=== PATIENT | female | born 1950 | race Caucasian/White ===

== ENCOUNTER → 2020-12-26 10:09 | Outpatient (BNVA) | payer MEDICARE, MEDICAID, SELFPAY | PROVIDERS: PCP Internal Medicine; Visit Provider Nurse Practitioner | DX: R19.5 Other fecal abnormalities (principal) | CPT/HCPCS: 99212 ==

== ENCOUNTER 2021-01-02 13:38 | Outpatient (REF) | payer MEDICARE, MEDICAID, SELFPAY ==
--- NOTE | ~2021-01-02 | MM_ITS ---
EXAMINATION: MM SCREENING DIGITAL MAMMOGRAPHY, BILATERAL CLINICAL INFORMATION: Screening. Asymptomatic. The lifetime risk of breast cancer based on the Tyrer-Cuzick Model is 4%. COMPARISON: Mammography: 03/02/2019 (new baseline) TECHNIQUE: Digital mammography is performed in craniocaudal and mediolateral oblique views along with computer-aided detection (CAD). Additional left MLO view is provided. FINDINGS: There are scattered areas of fibroglandular density (ACR BI-RADS breast composition Category b). There are no significant masses, abnormal calcifications, or other abnormalities. There is fibronodular parenchymal pattern similar to the prior new baseline exam. Parenchymal distribution is similar to the prior study. There are bilateral vascular calcifications. No significant changes. MM/MM screening mammo BI IMPRESSION: No mammographic evidence of malignancy. ASSESSMENT: BI-RADS 2: Benign RECOMMENDATION: Routine annual mammography screening. This patient's information was entered into a reminder system with a target due date for their next mammogram.
== END 2021-01-02 13:39 | disposition home or self-care (01) ==
LOC: HO.MAMMO 13:38
PROVIDERS: Visit Provider Internal Medicine
DX: Z12.31 Encounter for screening mammogram for malignant neoplasm of breast (principal)
CPT/HCPCS: 77067

== ENCOUNTER 2021-01-13 10:15 | Inpatient (IN) | payer MEDICARE, MEDICAID, SELFPAY ==
--- NOTE | ~2021-01-13 | CT_ITS ---
EXAMINATION: CT HEAD WITHOUT CONTRAST CLINICAL INFORMATION: Acute mental status change COMPARISON: None TECHNIQUE: Contiguous axial imaging was performed from the skull base to vertex without intravenous administration of contrast. This CT examination was performed using dose optimization techniques as appropriate, variously including the following: *Automated exposure control *Adjustment of mA and/or kV according to patient size (this includes techniques or standardized protocols for targeted exams where dose is matched to indication/reason for exam; i.e. extremities or head) *Use of iterative reconstruction technique DLP: 686 mGy-cm FINDINGS: There is no evidence of acute intracranial hemorrhage or territorial infarction. No abnormal mass effect or midline shift is seen. Martin to white matter differentiation is well preserved. No extra-axial fluid collections are identified. The ventricles are normal in size. There is no abnormal attenuation within the brain parenchyma. No skull fracture is seen. There is increased sclerosis of the bilateral mastoid air cells. Visualized paranasal sinuses and middle ears are clear. CT/CT head/brain wo con IMPRESSION: No acute findings.
--- NOTE | ~2021-01-13 | XR_ITS ---
EXAMINATION: XR CHEST CLINICAL INFORMATION: Acute mental status change COMPARISON: None TECHNIQUE: Frontal view of the chest was obtained. FINDINGS: The cardiac silhouette is upper normal in size. Hilar and mediastinal contours are normal. There is subsegmental atelectasis at the left lung base. The lungs are otherwise clear. There is no pleural effusion or pneumonia thorax. Bony structures are unremarkable. XR/XR chest 1V IMPRESSION: Subsegmental atelectasis at the left lung base.
[2021-01-13 08:00] VITALS: BMI 21.9
[2021-01-13 10:43] VITALS: BP 169/67; PULSE 68; RESP 18; TEMP 36.9; O2SAT 94; BMI 24.3
--- NOTE | 2021-01-13 10:58 | ECG_ITS ---
Test Reason : GENERAL MEDICAL Blood Pressure : / mmHG Vent. Rate : 081 BPM Atrial Rate : 081 BPM P-R Int : 196 ms QRS Dur : 152 ms QT Int : 422 ms P-R-T Axes : 070 -23 106 degrees QTc Int : 490 ms Normal sinus rhythm Possible Left atrial enlargement Left bundle branch block Abnormal ECG No previous ECGs available Referred By: Carolina Garcia Electronically Signed By:GLORIA GARIBAY MD
--- NOTE | 2021-01-13 11:08 | ED_ITS ---
HPI - Altered Mental Status General Chief Complaint: Altered Mental Status Stated Complaint: refused dialysis today/weakness Time Seen by Provider: 01/13/21 10:44 Source: patient and EMS Mode of arrival: EMS History of Present Illness HPI narrative: 70-year-old female with a PMH hypertensive encephalopathy, ESRD on HD (T//), DM, epilepsy, opioid use, unspecified dementia, anemia, hyperlipidemia, depression, HTN, GERD, BIBA from [facility] for increased confusion/AMS s/p refusing dialysis today and partially over the w eekend. History obtained from [facility] staff reports patients dialysis was cut short on Tuesday secondary to her complaining of pain, and refused today thus was sent to ED. At baseline is A&O x3, receives HD at [facility]. No known history of trauma/falls or fever. History limited due to patient's acute AMS Related Data Home Medications Medication Instructions Recorded Confirmed AB-nsofbdxetw-[id number] 1 valorie PO Q4H PRN 01/13/21 01/13/21 [Chloraseptic Total] acetaminophen 975 mg PO Q8H PRN 01/13/21 01/13/21 amlodipine 1 tab PO DAILY 01/13/21 01/13/21 aspirin 1 tab PO DAILY 01/13/21 01/13/21 atorvastatin 1 tab PO BEDTIME 01/13/21 01/13/21 calcium carbonate 500 mg PO Q4H PRN 01/13/21 01/13/21 cetirizine [Zyrtec] 10 mg PO DAILY 01/13/21 01/13/21 cholecalciferol (vitamin D3) 1,250 mcg PO QMONTH 01/13/21 01/13/21 dextromethorphan-guaifenesin 10 ml PO Q4H PRN 01/13/21 01/13/21 [Robitussin-DM] docusate sodium 100 mg PO BID 01/13/21 01/13/21 hydrocortisone 1 appl TOPICAL QID PRN 01/13/21 01/13/21 iron fum-vit C-B complex-FA 1 tab PO DAILY 01/13/21 01/13/21 [Nephro-Fannie + Fe] isosorbide mononitrate 60 mg PO BEDTIME 01/13/21 01/13/21 lactulose 30 ml PO Q OTHER DAY 01/13/21 01/13/21 lamotrigine 1 tab PO DAILY 01/13/21 01/13/21 lorazepam 0.5 mg PO BID 01/13/21 01/13/21 lorazepam 0.5 mg PO Q4H PRN 01/13/21 01/13/21 lorazepam 0.5 mg PO TUTHSA 01/13/21 01/13/21 losartan 1 tab PO BID 01/13/21 01/13/21 olanzapine 1 tab PO BEDTIME 01/13/21 01/13/21 oxycodone 5 mg PO Q12H PRN 01/13/21 01/13/21 oxycodone 5 mg PO TUTHSA PRN 01/13/21 01/13/21 polyethyl glycol-polyvinyl alc 2 drp OPHTHALMIC (EYE) Q2H PRN 01/13/21 01/13/21 [HypoTears Select] polyethylene glycol 3350 17 g PO DAILY PRN 01/13/21 01/13/21 sennosides 17.2 mg PO DAILY 01/13/21 01/13/21 sevelamer carbonate 2,400 mg PO TUTHSA 01/13/21 01/13/21 sevelamer carbonate 2,400 mg PO USEASDIRECTD 01/13/21 01/13/21 sevelamer carbonate 2,400 mg PO USEASDIRECTD 01/13/21 01/13/21 simethicone 120 mg PO Q6H PRN 01/13/21 01/13/21 sodium chloride [Saline Nasal] 1 spray INTRANASAL Q4H PRN 01/13/21 01/13/21 sodium zirconium cyclosilicate 5 g PO SUMOWE 01/13/21 01/13/21 Allergies Allergy/AdvReac Type Severity Reaction Status Date / Time tuberculin,PPD,multi-puncture Allergy Unknown UNKNOWN Verified 12/26/20 10:19 [TUBERCULIN,PPD,MULTI-PUNCTURE] Review of Systems Review of Systems: Constitutional: No Fever Cardiovascular: No Chest Pain, No SOB Respiratory: No Cough Gastrointestinal: No Nausea, No Vomiting, No Abdominal pain Skin: No Skin Lesions, No rash Neuro: +AMS History limited secondary to acute AMS Yes all other systems are reviewed and are negative PMFSH Past Medical History Attestation statement: The following information was validated with the patient. Surgical History Hx of section Hx of colonoscopy Hx of lumpectomy Family History Family History (Updated 12/26/20 @ 10:21 by JARVIS Joya) Sister Asthma Father Diabetes Son Diabetes Social History Social History (Updated 12/26/20 @ 10:22 by JARVIS Joya) Alcohol intake: unknown Smoking Status: Never smoker Smoked in Last 30 Days: No Use of substances other than those prescribed or required for medical reasons: Unable to respond Advance Directives: No Advance Directives Information Provided: Yes Advance Directives on File: No Advance Directives Date on File: 01/13/21 Physical Exam Vital Signs: Vital Signs: Last Vital Signs Temp 98.5 F 01/13/21 10:43 Pulse 84 01/13/21 14:25 Resp 18 01/13/21 14:25 BP 141/72 H 01/13/21 14:25 Pulse Ox 90 L 01/13/21 14:25 Body Mass Index 24.3 Const: General: cooperative and healthy appearing Orientation/consciou sness: oriented to person Limitations: no limitations HENMT: Head: Yes normal to inspection and Yes atraumatic Ears: hearing grossly normal bilaterally General nose exam: Normal external nose present Face and sinus: Yes normal facial exam Eyes: General: appearance normal, both eyes and all related structures Pupils: Pinpoint pupils bilaterally EOM: EOMs intact bilaterally Neck: Neck: Yes normal visual inspection and Yes no meningeal signs Resp: Effort & Inspection: normal respiratory effort Auscultation: clear to auscultation bilaterally and no wheezes Cardio: Rate: regular rate Heart sounds: S1 normal heart sound present and S2 normal heart sound present GI: Inspection: Yes normal to inspection Palpation (GI): Soft to palpation, nontender, no guarding and not rigid Skin: Rashes: no rashes Wounds: no wounds Neuro: General: oriented to person, tone normal, moves all extremities and no meningeal signs Extrem: General: Yes normal to inspection and Yes no pedal edema Course Course Course Narrative: -potassium elevated at 6.7 > left bundle noted on EKG unclear if new or old >> HCO3, IV calcium, dextrose, and insulin ordered. Nephrology paged. BUN 84, creatinine 10.2 -troponin 41.6 likely from renal dysfunction > will obtain 3hr repeat. BNP 588 -Spoke to Renal Dr. Vasquez, plan for dialysis today CT head/brain wo con IMPRESSION: No acute findings. XR chest 1V IMPRESSION: Subsegmental atelectasis at the left lung base -1252-- patient admitted for further management -1328-- dialysis calling for patient to go to HD, hospitalist made aware. Patient increasing altered, combative, 2mg IM Ativan ordered, patient increasingly agitated, thrashing, now in respiratory distress, likely in flash pulmonary edema with coarse lung sounds, desatting 90% on RA> placed on non- rebreather. Patient is DNR/DNI, BiPAP/CPAP not indicated. Called son Michael who is healthcare proxy, he was not aware of code status, MOLST was signed in 2019. Son became very angry on phone, upset that we allowed patient to refuse dialysis, does not know if he make it to hospital, is willing to try BiPAP. -1416-- patient stabilized on BiPAP, Solder [employer]ayer paged [phone]-- Dr. Cid evaluated patient in the ED, removed pt from BiPAP in the ED, 6L NC placed, will be admitted to the ICU MDM - Altered Mental Status MDM Narrative Medical decision making narrative: 70-year-old female with a PMHx hypertensive encephalopathy, ESRD on HD (//), DM, epilepsy, opioid use, unspecified dementia, anemia, hyperlipidemia, depression, HTN, GERD, BIBA from [facility] for increased confusion/AMS s/p refusing dialysis today and partially over the weekend. On exam VSS, NAD, A&O x1, intermittently following commands. History limited due to patient's acute AMS. Concern for metabolic encephalopathy vs other infectious etiology. Lower concern for ACS/ICH Plan: EKG, labs, CXR, head CT, anticipated admission or transfer to dialysis Medical Records Attestation: I reviewed the patient's medical records. Lab Data Attestation: I reviewed the patient's lab results. Result diagrams: 01/13/21 11:44 01/13/21 11:44 Labs: Lab Results 01/13/21 01/13/21 01/13/21 Range/Units 11:44 11:44 11:44 WBC 3.6 L (4.8-10.8) X10*3/uL RBC 4.28 (4.20-5.50) X10*6/uL Hgb 12.5 (12.0-16.0) g/dl Hct 37.3 (37-47) % MCV 87.1 (80-98) fL MCH 29.2 (27.0-33.0) pg MCHC 33.5 (31.0-35.0) g/dl RDW 15.6 (11.0-16.0) % Plt Count 118 L (160-400) X10*3/uL MPV 9.5 (9.4-12.3) fL Immature Gran % (Auto) 0.3 (0.0-0.4) % Neut % (Auto) 68.7 (45-73) % Lymph % (Auto) 19.0 L (20-40) % [place] % (Auto) 9.2 (2-11) % Eos % (Auto) 2.2 (0-4) % Baso % (Auto) 0.6 (0-2) % Lymph # (Auto) 0.7 L (1.2-4.9) X10*3/uL [place] # (Auto) 0.3 (0.1-1.2) X10*3/uL Eos # (Auto) 0.1 (0.0-0.4) X10*3/uL Baso # (Auto) 0.0 (0.0-0.2) X10*3/uL Abs Immat Gran (auto) 0.01 (0.00-0.03) X10*3/uL Absolute Neuts (auto) 2.5 (2.0-8.3) X10*3/uL Absolute Nucleated RBC 0.000 (0.0-0.012) X10*3/uL Nucleated RBC % (auto) 0.0 (0.0-0.2) /100WBC Smear Tech's Comments VERIFIED PT 11.8 (10.8-13.0) SEC INR 1.0 (0.9-1.1) APTT 36.4 (24.1-38.0) SEC Sodium 139 (135-145) mmol/L Potassium 6.7 H* (3.3-5.1) mmol/L Chloride 96 (96-108) mmol/L Carbon Dioxide 23 (22-29) mmol/L Anion Gap 27 H (12-20) BUN 84 H* (9-16) mg/dL Creatinine 10.21 H* (0.5-1.4) mg/dL Estim Creat Clear Calc 4.7 Estimated GFR 4 Random Glucose 90 (60-115) mg/dL Lactic Acid (0.5-2.0) mmol/L Calcium 9.0 (8.4-10.2) mg/dL Magnesium 2.5 (1.6-2.6) mg/dL Total Bilirubin 0.3 (0.0-1.0) mg/dL Direct Bilirubin 0.2 (0.0-0.5) mg/dL AST 18 (5-31) U/L ALT 14 (0-31) U/L Alkaline Phosphatase 104 (39-117) U/L Ammonia (13-55) umol/L Troponin I High Sens (<3.5-17.0) ng/L B-Natriuretic Peptide (<100) pg/mL Total Protein 7.4 (6.5-8.0) g/dL Albumin 4.2 (3.5-5.0) g/dL Lipase 46 (8-78) U/L Urine Color Urine Appearance Urine pH (5.0-8.0) Ur Specific [place] (1.005-1.025) Urine Protein (NEG-TRACE) MG/DL Urine Glucose (UA) (NEG) MG/DL Urine Ketones (NEG) MG/DL Urine Blood (NEG) Urine Nitrite (NEG) Ur Leukocyte Esterase (NEG) Urine RBC (0) /HPF Urine WBC (0-4) /HPF Ur Squamous Epith Cells /LPF Amorphous Sediment /LPF Urine Bacteria /LPF COVID-19 (MARITZA) (Negative) COVID-19 Clin Com 01/13/21 01/13/21 01/13/21 Range/Units 11:44 11:44 11:44 WBC (4.8-10.8) X10*3/uL RBC (4.20-5.50) X10*6/uL Hgb (12.0-16.0) g/dl Hct (37-47) % MCV (80-98) fL MCH (27.0-33.0) pg MCHC (31.0-35.0) g/dl RDW (11.0-16.0) % Plt Count (160-400) X10*3/uL MPV (9.4-12.3) fL Immature Gran % (Auto) (0.0-0.4) % Neut % (Auto) (45-73) % Lymph % (Auto) (20-40) % [place] % (Auto) (2-11) % Eos % (Auto) (0-4) % Baso % (Auto) (0-2) % Lymph # (Auto) (1.2-4.9) X10*3/uL [place] # (Auto) (0.1-1.2) X10*3/uL Eos # (Auto) (0.0-0.4) X10*3/uL Baso # (Auto) (0.0-0.2) X10*3/uL Abs Immat Gran (auto) (0.00-0.03) X10*3/uL Absolute Neuts (auto) (2.0-8.3) X10*3/uL Absolute Nucleated RBC (0.0-0.012) X10*3/uL Nucleated RBC % (auto) (0.0-0.2) /100WBC Smear Tech's Comments PT (10.8-13.0) SEC INR (0.9-1.1) APTT (24.1-38.0) SEC Sodium (135-145) mmol/L Potassium (3.3-5.1) mmol/L Chloride (96-108) mmol/L Carbon Dioxide (22-29) mmol/L Anion Gap (12-20) BUN (9-16) mg/dL Creatinine (0.5-1.4) mg/dL Estim Creat Clear Calc Estimated GFR Random Glucose (60-115) mg/dL Lactic Acid 0.6 (0.5-2.0) mmol/L Calcium (8.4-10.2) mg/dL Magnesium (1.6-2.6) mg/dL Total Bilirubin (0.0-1.0) mg/dL Direct Bilirubin (0.0-0.5) mg/dL AST (5-31) U/L ALT (0-31) U/L Alkaline Phosphatase (39-117) U/L Ammonia (13-55) umol/L Troponin I High Sens 41.6 H (<3.5-17.0) ng/L B-Natriuretic Peptide 588 H (<100) pg/mL Total Protein (6.5-8.0) g/dL Albumin (3.5-5.0) g/dL Lipase (8-78) U/L Urine Color Urine Appearance Urine pH (5.0-8.0) Ur Specific [place] (1.005-1.025) Urine Protein (NEG-TRACE) MG/DL Urine Glucose (UA) (NEG) MG/DL Urine Ketones (NEG) MG/DL Urine Blood (NEG) Urine Nitrite (NEG) Ur Leukocyte Esterase (NEG) Urine RBC (0) /HPF Urine WBC (0-4) /HPF Ur Squamous Epith Cells /LPF Amorphous Sediment /LPF Urine Bacteria /LPF COVID-19 (MARITZA) Negative (Negative) COVID-19 Clin Com See Note 01/13/21 01/13/21 Range/Units 11:45 12:58 WBC (4.8-10.8) X10*3/uL RBC (4.20-5.50) X10*6/uL Hgb (12.0-16.0) g/dl Hct (37-47) % MCV (80-98) fL MCH (27.0-33.0) pg MCHC (31.0-35.0) g/dl RDW (11.0-16.0) % Plt Count (160-400) X10*3/uL MPV (9.4-12.3) fL Immature Gran % (Auto) (0.0-0.4) % Neut % (Auto) (45-73) % Lymph % (Auto) (20-40) % [place] % (Auto) (2-11) % Eos % (Auto) (0-4) % Baso % (Auto) (0-2) % Lymph # (Auto) (1.2-4.9) X10*3/uL [place] # (Auto) (0.1-1.2) X10*3/uL Eos # (Auto) (0.0-0.4) X10*3/uL Baso # (Auto) (0.0-0.2) X10*3/uL Abs Immat Gran (auto) (0.00-0.03) X10*3/uL Absolute Neuts (auto) (2.0-8.3) X10*3/uL Absolute Nucleated RBC (0.0-0.012) X10*3/uL Nucleated RBC % (auto) (0.0-0.2) /100WBC Smear Tech's Comments PT (10.8-13.0) SEC INR (0.9-1.1) APTT (24.1-38.0) SEC Sodium (135-145) mmol/L Potassium (3.3-5.1) mmol/L Chloride (96-108) mmol/L Carbon Dioxide (22-29) mmol/L Anion Gap (12-20) BUN (9-16) mg/dL Creatinine (0.5-1.4) mg/dL Estim Creat Clear Calc Estimated GFR Random Glucose (60-115) mg/dL Lactic Acid (0.5-2.0) mmol/L Calcium (8.4-10.2) mg/dL Magnesium (1.6-2.6) mg/dL Total Bilirubin (0.0-1.0) mg/dL Direct Bilirubin (0.0-0.5) mg/dL AST (5-31) U/L ALT (0-31) U/L Alkaline Phosphatase (39-117) U/L Ammonia 36 (13-55) umol/L Troponin I High Sens (<3.5-17.0) ng/L B-Natriuretic Peptide (<100) pg/mL Total Protein (6.5-8.0) g/dL Albumin (3.5-5.0) g/dL Lipase (8-78) U/L Urine Color STRAW Urine Appearance CLEAR Urine pH 8.0 (5.0-8.0) Ur Specific [place] 1.015 (1.005-1.025) Urine Protein 2+ H (NEG-TRACE) MG/DL Urine Glucose (UA) 100 H (NEG) MG/DL Urine Ketones NEG (NEG) MG/DL Urine Blood 1+ H (NEG) Urine Nitrite NEG (NEG) Ur Leukocyte Esterase NEG (NEG) Urine RBC 1-4 (0) /HPF Urine WBC 0-2 (0-4) /HPF Ur Squamous Epith Cells TRACE /LPF Amorphous Sediment 1+ /LPF Urine Bacteria NONE /LPF COVID-19 (MARITZA) (Negative) COVID-19 Clin Com ECG Data ECG #1: Attestation: I personally reviewed and interpreted this ECG as follows: ECG interpretation date: 01/13/21 Interpretation: EKG normal sinus rhythm with a rate of 81, LBBB Discharge Plan Discharge Clinical Impression: Acute metabolic encephalopathy, ESRD (end stage renal disease) on dialysis, Pulmonary edema Patient Disposition: Admitted As Inpatient
[2021-01-13 11:55] LABS: Basophils Percent Auto 0.6 % (0-2); Eosinophils Absolute Auto 0.1 X10*3/uL (0.0-0.4); Eosinophils Percent Auto 2.2 % (0-4); Hematocrit 37.3 % (37-47); Hemoglobin 12.5 g/dl (12.0-16.0); Imm Gran Abs Auto 0.01 X10*3/uL (0.00-0.03); Imm Gran Pct Auto 0.3 % (0.0-0.4); Lymphocytes Absolute Auto 0.7 X10*3/uL (1.2-4.9); MANUAL DIFF FLAG SCAN; Mean Corpuscular HGB Conc 33.5 g/dl (31.0-35.0); Mean Corpuscular Hemoglobin 29.2 pg (27.0-33.0); Mean Corpuscular Volume 87.1 fL (80-98); Mean Platelet Volume 9.5 fL (9.4-12.3); Monocytes Absolute Auto 0.3 X10*3/uL (0.1-1.2); Monocytes Percent Auto 9.2 % (2-11); Neutrophils Absolute Auto 2.5 X10*3/uL (2.0-8.3); Neutrophils Percent Auto 68.7 % (45-73); Platelet Count 118 X10*3/uL (160-400); Red Blood Count 4.28 X10*6/uL (4.20-5.50); Red Cell Distribution Width 15.6 % (11.0-16.0); SCAN SMEAR FLAG 1; White Blood Count 3.6 X10*3/uL (4.8-10.8)
[2021-01-13 12:07] LABS: Prothrombin Time 11.8 SEC (10.8-13.0)
[2021-01-13 12:10] LABS: Partial Thromboplastin Time 36.4 SEC (24.1-38.0)
[2021-01-13 12:12] LABS: COVID-19 Test Negative (Negative)
[2021-01-13 12:18] LABS: Lactic Acid 0.6 mmol/L (0.5-2.0)
[2021-01-13 12:18] LABS: Ammonia 36 umol/L (13-55)
[2021-01-13 12:26] LABS: SLIDE REVIEW VERIFIED
[2021-01-13 12:37] LABS: Alanine Aminotransferase 14 U/L (0-31); Albumin Level 4.2 g/dL (3.5-5.0); Alkaline Phosphatase 104 U/L (39-117); Anion Gap 27 (12-20); Aspartate Amino Transferase 18 U/L (5-31); B Type Natriuretic Peptide 588 pg/mL (<100); Bilirubin Direct 0.2 mg/dL (0.0-0.5); Bilirubin Total 0.3 mg/dL (0.0-1.0); Blood Urea Nitrogen 84 mg/dL (9-16); Carbon Dioxide 23 mmol/L (22-29); Chloride 96 mmol/L (96-108); Creatinine Clr Calc Pharmacy 4.7; Estimated Glomerular Filt Rate 4; Glucose Random 90 mg/dL (60-115); Lipase 46 U/L (8-78); Magnesium 2.5 mg/dL (1.6-2.6); Potassium 6.7 mmol/L (3.3-5.1); Sodium 139 mmol/L (135-145); Total Protein 7.4 g/dL (6.5-8.0); Troponin-I High Sensitivity 41.6 ng/L (<3.5-17.0)
[2021-01-13 13:08] LABS: Glucose Urine UA 100 MG/DL (NEG); Leukocyte Esterase Urine NEG (NEG); Nitrite Urine NEG (NEG); Specific Gravity - Urine 1.015 (1.005-1.025); Urine Blood 1+ (NEG); Urine Ketones NEG (NEG); Urine Protein 2+ MG/DL (NEG-TRACE)
[2021-01-13 13:09] LABS: Appearance Urine CLEAR; Color Urine STRAW
--- NOTE | 2021-01-13 13:19 | PC.NURSE ---
Pt attempting multiple times to get out of bed without assistance. Attempted to redirect patient to bed. PT moved to 6H at this time.
[2021-01-13 13:33] LABS: Amorphous Sediment Urine 1+ /LPF; Squamous Epithelial Cell Urine TRACE /LPF; WBC Urine 0-2 /HPF (0-4)
[2021-01-13] MEDS: LORazepam 2 MG/ML VIAL IM (13:33)
[2021-01-13 13:48] VITALS: BP 229/115; PULSE 122; RESP 34; O2SAT 98
[2021-01-13 14:00] VITALS: BP 241/133; PULSE 126; RESP 24; O2SAT 97
--- NOTE | 2021-01-13 14:03 | PC.NURSE ---
Patient became diaphoretic and pale at approximately 1320, O2 saturation on monitor reading 65%. Pt moved to room 9 and placed on monitor. Pt extremely confused, pulled out IV line. New IV line placed, 20g in right AC. Pt's breathing improved at this time, placed on bipap by respiratory therapy.
[2021-01-13] MEDS: Calcium Gluconate/NaCl,Iso-Osm 2 GM/100 ML PLAST..BAG IV (14:14)
[2021-01-13] MEDS: Sodium Bicarbonate 8.4% 50 MEQ/50 ML VIAL IVPUSH (14:15)
[2021-01-13] MEDS: Insulin Regular, Human 100 UNIT/ML 3 ML VIAL IVPUSH (14:15)
[2021-01-13 14:25] VITALS: BP 141/72; PULSE 84; RESP 18; O2SAT 90
[2021-01-13 15:02] LABS: Troponin-I High Sensitivity 33.7 ng/L (<3.5-17.0)
--- NOTE | 2021-01-13 15:36 | P.PNNP_ITS ---
Subjective Subjective Date of Service: 01/13/21 Interval history: Patient seen and examined on dialysis Physical Exam Vital Signs: Vital Signs: Last Vital Signs Temp 98.5 F 01/13/21 10:43 Pulse 84 01/13/21 14:25 Resp 18 01/13/21 14:25 BP 141/72 H 01/13/21 14:25 Pulse Ox 90 L 01/13/21 14:25 Body Mass Index 24.3 Objective Data Labs CBC & Chem 7: 01/13/21 11:44 01/13/21 11:44 Labs: Laboratory Results - last 24 hr 01/13/21 01/13/21 01/13/21 11:44 11:44 11:44 WBC 3.6 L RBC 4.28 Hgb 12.5 Hct 37.3 MCV 87.1 MCH 29.2 MCHC 33.5 RDW 15.6 Plt Count 118 L MPV 9.5 Immature Gran % (Auto) 0.3 Neut % (Auto) 68.7 Lymph % (Auto) 19.0 L [place] % (Auto) 9.2 Eos % (Auto) 2.2 Baso % (Auto) 0.6 Lymph # (Auto) 0.7 L [place] # (Auto) 0.3 Eos # (Auto) 0.1 Baso # (Auto) 0.0 Abs Immat Gran (auto) 0.01 Absolute Neuts (auto) 2.5 Absolute Nucleated RBC 0.000 Nucleated RBC % (auto) 0.0 Smear Tech's Comments VERIFIED PT 11.8 INR 1.0 APTT 36.4 Sodium 139 Potassium 6.7 H* Chloride 96 Carbon Dioxide 23 Anion Gap 27 H BUN 84 H* Creatinine 10.21 H* Estim Creat Clear Calc 4.7 Estimated GFR 4 Random Glucose 90 Lactic Acid Calcium 9.0 Magnesium 2.5 Total Bilirubin 0.3 Direct Bilirubin 0.2 AST 18 ALT 14 Alkaline Phosphatase 104 Ammonia Troponin I High Sens B-Natriuretic Peptide Total Protein 7.4 Albumin 4.2 Lipase 46 Urine Color Urine Appearance Urine pH Ur Specific [place] Urine Protein Urine Glucose (UA) Urine Ketones Urine Blood Urine Nitrite Ur Leukocyte Esterase Urine RBC Urine WBC Ur Squamous Epith Cells Amorphous Sediment Urine Bacteria COVID-19 (MARITZA) COVID-19 Clin Com 01/13/21 01/13/21 01/13/21 11:44 11:44 11:44 WBC RBC Hgb Hct MCV MCH MCHC RDW Plt Count MPV Immature Gran % (Auto) Neut % (Auto) Lymph % (Auto) [place] % (Auto) Eos % (Auto) Baso % (Auto) Lymph # (Auto) [place] # (Auto) Eos # (Auto) Baso # (Auto) Abs Immat Gran (auto) Absolute Neuts (auto) Absolute Nucleated RBC Nucleated RBC % (auto) Smear Tech's Comments PT INR APTT Sodium Potassium Chloride Carbon Dioxide Anion Gap BUN Creatinine Estim Creat Clear Calc Estimated GFR Random Glucose Lactic Acid 0.6 Calcium Magnesium Total Bilirubin Direct Bilirubin AST ALT Alkaline Phosphatase Ammonia Troponin I High Sens 41.6 H B-Natriuretic Peptide 588 H Total Protein Albumin Lipase Urine Color Urine Appearance Urine pH Ur Specific [place] Urine Protein Urine Glucose (UA) Urine Ketones Urine Blood Urine Nitrite Ur Leukocyte Esterase Urine RBC Urine WBC Ur Squamous Epith Cells Amorphous Sediment Urine Bacteria COVID-19 (MARITZA) Negative COVID-Vol[place] See Note 01/13/21 01/13/21 01/13/21 11:45 12:58 14:20 WBC RBC Hgb Hct MCV MCH MCHC RDW Plt Count MPV Immature Gran % (Auto) Neut % (Auto) Lymph % (Auto) [place] % (Auto) Eos % (Auto) Baso % (Auto) Lymph # (Auto) [place] # (Auto) Eos # (Auto) Baso # (Auto) Abs Immat Gran (auto) Absolute Neuts (auto) Absolute Nucleated RBC Nucleated RBC % (auto) Smear Tech's Comments PT INR APTT Sodium Potassium Chloride Carbon Dioxide Anion Gap BUN Creatinine Estim Creat Clear Calc Estimated GFR Random Glucose Lactic Acid Calcium Magnesium Total Bilirubin Direct Bilirubin AST ALT Alkaline Phosphatase Ammonia 36 Troponin I High Sens 33.7 H B-Natriuretic Peptide Total Protein Albumin Lipase Urine Color STRAW Urine Appearance CLEAR Urine pH 8.0 Ur Specific [place] 1.015 Urine Protein 2+ H Urine Glucose (UA) 100 H Urine Ketones NEG Urine Blood 1+ H Urine Nitrite NEG Ur Leukocyte Esterase NEG Urine RBC 1-4 Urine WBC 0-2 Ur Squamous Epith Cells TRACE Amorphous Sediment 1+ Urine Bacteria NONE COVID-19 (MARITZA) COVID-19 [employer] Com Assessment & Plan Assessment and plan (1) ESRD (end stage renal disease): Status: Acute (2) Hyperkalemia: Status: Acute (3) Pulmonary edema: Status: Acute Assessment and Plan: HD now volume optimization low potassium bath renal diet phosphate binders no need for VIJI Time Spent With Patient Time: Total time spent is greater than 50% in coordination of care (as documented) at patient's floor/unit and/or counseling patient:
--- NOTE | 2021-01-13 16:19 | PM.EVENT ---
Event Note Date of Service: 01/13/21 Event Note: I was asked to write admission orders for Mrs. Bird so that she could be expedited up to Dialysis. I wrote orders for admission to ICU because the patient was on BiPAP in the ED. I then went to the ED to see her. The patient is a 70 yo F with ESRF who was brought to the ED with altered mental status. Was admitted to Medicine by the hospitalist, but while waiting in the ED to go up to dialysis, she went into hypertensive crisis w pulmonary edema when her BP luis angel to 240/130. She was put on BiPAP and given nitrates. Her BP came down to the 120s, at which time I saw her in the ED. She was breathing easy on BiPAP. Took her off BiPAP and put her on 6L NC. Breathing easy with Sat low 90?s. She then went up to dialysis. On Dialysis, she?s sleeping and breathing easy, with Sat mid 90?s on 6L NC. I asked Jeannie to turn her down to 4L. Discussed with Dr. Weiner. She will be admitted to [facility] after completion of her dialysis session. Time: .
--- NOTE | 2021-01-13 16:50 | P.HPHOSP_ITS ---
History of Present Illness Date of Service: 01/13/21 Chief Complaint: Altered mentation, refusing dialysis, difficulty breathing A 70 years old lady with PMH of hypertension, ESRD on dialysis, diabetes, epilepsy, dementia among others who presented [facility] the hospital [facility] jail for altered mentation and increased confusion as she were refusing dialysis for the last 2 sessions. The patient is not able to provide any meaningful history it was taken mainly from EMS records and emergency provider. The patient refused to finish her dialysis sessions Tuesday and refused to go to the 2nd session today. Noticed to have increase confusion and altered mentation. In the emergency she was noted to have significantly elevated potassium level 6.9 with elevated creatinine. Developed difficulty breathing and noticed to flash pulmonary edema requiring BiPAP support and ICU evaluation with plan was to admission to ICU with the patient improved after BiPAP and was able to get dialysis unit were she started dialysis. Review of Systems Review of Systems: Patient encephalopathic and unable to provide any meaningful history. FOR[facility]LY [facility] Family History Sister Asthma Father Diabetes Son Diabetes Surgical History Hx of section Hx of colonoscopy Hx of lumpectomy Social History Alcohol intake: unknown Smoking Status: Never smoker Smoked in Last 30 Days: No Use of substances other than those prescribed or required for medical reasons: Unable to respond Advance Directives: No Advance Directives Information Provided: Yes Advance Directives on File: No Advance Directives Date on File: 01/13/21 Meds Allergies Allergy/AdvReac Type Severity Reaction Status Date / Time tuberculin,PPD,multi-puncture Allergy Unknown UNKNOWN Verified 12/26/20 10:19 [TUBERCULIN,PPD,MULTI-PUNCTURE] Active Medications: Current Medications Generic Name Dose Route Start Last Admin Trade Name Freq PRN Reason Stop Dose Admin Pharmacy Consult 1 each 01/13/21 11:13 Consult Rx Perform Med Rec MISCELLANE ONCE PRN Consult order Home Medications Medication Instructions Recorded Confirmed Last Taken Type [id number] 1 valorie PO Q4H PRN 01/13/21 01/13/21 Unknown History [Chloraseptic Total] acetaminophen 975 mg PO Q8H PRN 01/13/21 01/13/21 Unknown History amlodipine 1 tab PO DAILY 01/13/21 01/13/21 Unknown History aspirin 1 tab PO DAILY 01/13/21 01/13/21 Unknown History atorvastatin 1 tab PO BEDTIME 01/13/21 01/13/21 Unknown History calcium carbonate 500 mg PO Q4H PRN 01/13/21 01/13/21 Unknown History cetirizine [Zyrtec] 10 mg PO DAILY 01/13/21 01/13/21 Unknown History cholecalciferol (vitamin D3) 1,250 mcg PO QMONTH 01/13/21 01/13/21 01/11/21 History dextromethorphan-guaifenesin 10 ml PO Q4H PRN 01/13/21 01/13/21 Unknown History [Robitussin-DM] docusate sodium 100 mg PO BID 01/13/21 01/13/21 Unknown History hydrocortisone 1 appl TOPICAL QID PRN 01/13/21 01/13/21 Unknown History iron fum-vit C-B complex-FA 1 tab PO DAILY 01/13/21 01/13/21 Unknown History [Nephro-Fannie + Fe] isosorbide mononitrate 60 mg PO BEDTIME 01/13/21 01/13/21 Unknown History lactulose 30 ml PO Q OTHER DAY 01/13/21 01/13/21 Unknown History lamotrigine 1 tab PO DAILY 01/13/21 01/13/21 Unknown History lorazepam 0.5 mg PO BID 01/13/21 01/13/21 Unknown History lorazepam 0.5 mg PO Q4H PRN 01/13/21 01/13/21 Unknown History lorazepam 0.5 mg PO TUTHSA 01/13/21 01/13/21 Unknown History losartan 1 tab PO BID 01/13/21 01/13/21 Unknown History olanzapine 1 tab PO BEDTIME 01/13/21 01/13/21 Unknown History oxycodone 5 mg PO Q12H PRN 01/13/21 01/13/21 Unknown History oxycodone 5 mg PO TUTHSA PRN 01/13/21 01/13/21 Unknown History polyethyl glycol-polyvinyl alc 2 drp OPHTHALMIC (EYE) Q2H PRN 01/13/21 01/13/21 Unknown History [HypoTears Select] polyethylene glycol 3350 17 g PO DAILY PRN 01/13/21 01/13/21 Unknown History sennosides 17.2 mg PO DAILY 01/13/21 01/13/21 Unknown History sevelamer carbonate 2,400 mg PO TUTHSA 01/13/21 01/13/21 Unknown History sevelamer carbonate 2,400 mg PO USEASDIRECTD 01/13/21 01/13/21 Unknown History sevelamer carbonate 2,400 mg PO USEASDIRECTD 01/13/21 01/13/21 Unknown History simethicone 120 mg PO Q6H PRN 01/13/21 01/13/21 Unknown History sodium chloride [Saline Nasal] 1 spray INTRANASAL Q4H PRN 01/13/21 01/13/21 Unknown History sodium zirconium cyclosilicate 5 g PO SUMOWE 01/13/21 01/13/21 Unknown History Physical Exam Vital Signs and Narrative: Vital Signs: Last Vital Signs Temp 98.5 F 01/13/21 10:43 Pulse 84 01/13/21 14:25 Resp 18 01/13/21 14:25 BP 141/72 H 01/13/21 14:25 Pulse Ox 90 L 01/13/21 14:25 Body Mass Index 24.3 Const: Other: Constitutional : Very drowsy and sleepy, open eyes with stimulation but unable to provide any meaningful history, not in distress Neck : Normal inspection, Supple Cardiovascular : RRR, S1 S2, trace bilateral lower extremity edema Respiratory : Fair bilateral air entry, basal fine crackles, wheezes or rhonchi Gastrointestinal: soft, lax, Normal bowel sounds, Non tender Skin : Warm/Dry, No rash Neurological : Lethargic, respond to stimuli, oriented to self but not place or time, No focal deficit Results Labs CBC and Chem 7: 01/13/21 11:44 01/13/21 11:44 Labs: Laboratory Results - last 24 hr 01/13/21 01/13/21 01/13/21 11:44 11:44 11:44 MCV 87.1 MCH 29.2 MCHC 33.5 RDW 15.6 Plt Count 118 L MPV 9.5 Immature Gran % (Auto) 0.3 Neut % (Auto) 68.7 Lymph % (Auto) 19.0 L [place] % (Auto) 9.2 Eos % (Auto) 2.2 Baso % (Auto) 0.6 Lymph # (Auto) 0.7 L [place] # (Auto) 0.3 Eos # (Auto) 0.1 Baso # (Auto) 0.0 Abs Immat Gran (auto) 0.01 Absolute Neuts (auto) 2.5 Absolute Nucleated RBC 0.000 Nucleated RBC % (auto) 0.0 Smear Tech's Comments VERIFIED PT 11.8 INR 1.0 APTT 36.4 Anion Gap 27 H Estim Creat Clear Calc 4.7 Estimated GFR 4 Random Glucose 90 Lactic Acid Calcium 9.0 Magnesium 2.5 Total Bilirubin 0.3 Direct Bilirubin 0.2 AST 18 ALT 14 Alkaline Phosphatase 104 Ammonia Troponin I High Sens B-Natriuretic Peptide Total Protein 7.4 Albumin 4.2 Lipase 46 Urine Color Urine Appearance Urine pH Ur Specific [place] Urine Protein Urine Glucose (UA) Urine Ketones Urine Blood Urine Nitrite Ur Leukocyte Esterase Urine RBC Urine WBC Ur Squamous Epith Cells Amorphous Sediment Urine Bacteria COVID-19 (MARITZA) COVID-PercuVision 01/13/21 01/13/21 01/13/21 11:44 11:44 11:44 MCV MCH MCHC RDW Plt Count MPV Immature Gran % (Auto) Neut % (Auto) Lymph % (Auto) [place] % (Auto) Eos % (Auto) Baso % (Auto) Lymph # (Auto) [place] # (Auto) Eos # (Auto) Baso # (Auto) Abs Immat Gran (auto) Absolute Neuts (auto) Absolute Nucleated RBC Nucleated RBC % (auto) Smear Tech's Comments PT INR APTT Anion Gap Estim Creat Clear Calc Estimated GFR Random Glucose Lactic Acid 0.6 Calcium Magnesium Total Bilirubin Direct Bilirubin AST ALT Alkaline Phosphatase Ammonia Troponin I High Sens 41.6 H B-Natriuretic Peptide 588 H Total Protein Albumin Lipase Urine Color Urine Appearance Urine pH Ur Specific [place] Urine Protein Urine Glucose (UA) Urine Ketones Urine Blood Urine Nitrite Ur Leukocyte Esterase Urine RBC Urine WBC Ur Squamous Epith Cells Amorphous Sediment Urine Bacteria COVID-19 (MARITZA) Negative COVIDCareer Element See Note 01/13/21 01/13/21 01/13/21 11:45 12:58 14:20 MCV MCH MCHC RDW Plt Count MPV Immature Gran % (Auto) Neut % (Auto) Lymph % (Auto) [place] % (Auto) Eos % (Auto) Baso % (Auto) Lymph # (Auto) [place] # (Auto) Eos # (Auto) Baso # (Auto) Abs Immat Gran (auto) Absolute Neuts (auto) Absolute Nucleated RBC Nucleated RBC % (auto) Smear Tech's Comments PT INR APTT Anion Gap Estim Creat Clear Calc Estimated GFR Random Glucose Lactic Acid Calcium Magnesium Total Bilirubin Direct Bilirubin AST ALT Alkaline Phosphatase Ammonia 36 Troponin I High Sens 33.7 H B-Natriuretic Peptide Total Protein Albumin Lipase Urine Color STRAW Urine Appearance CLEAR Urine pH 8.0 Ur Specific [place] 1.015 Urine Protein 2+ H Urine Glucose (UA) 100 H Urine Ketones NEG Urine Blood 1+ H Urine Nitrite NEG Ur Leukocyte Esterase NEG Urine RBC 1-4 Urine WBC 0-2 Ur Squamous Epith Cells TRACE Amorphous Sediment 1+ Urine Bacteria NONE COVID-19 (MARITZA) COVID-19 Clin Com Imaging Radiologist's Impressions: Impressions Chest X-Ray 01/13/21 10:58 IMPRESSION: Subsegmental atelectasis at the left lung base. Head CT 01/13/21 11:20 IMPRESSION: No acute findings. Assessment and Plan (1) Hyperkalemia: Status: Acute (2) ESRD (end stage renal disease): Status: Acute (3) Acute metabolic encephalopathy: Status: Acute (4) Pulmonary edema: Qualifiers: Chronicity: acute Qualified Code(s): J81.0 - Acute pulmonary edema Status: Acute A 70 years old lady with PMH of hypertension, ESRD on dialysis, diabetes, epilepsy, dementia among others who presented to the hospital from jail for altered mentation and increased confusion as she were refusing dialysis for the last 2 sessions. Flash pulmonary edema Secondary to hypertensive urgency Improved with BiPAP treatment in the Emergency Evaluated by integrated pest management technician, recommend no need for admission to ICU at this point Hopefully will recover with dialysis ESRD requiring dialysis Missed 2 sessions Doing dialysis at this point Nephrology following Hypertensive encephalopathy Mentation still altered at the time of interview Hopefully will improve after dialysis and controlling blood pressure more Avoid medications that might affect her mentation Hyperkalemia Potassium of 6.7 Received calcium gluconate, insulin and dextrose Doing dialysis at this point Monitor BMP DVT PPX Heparin
--- NOTE | 2021-01-13 18:24 | PM.EVENT ---
Event Note Date of Service: 01/13/21 Event Note: At the completion of dialysis today at 18:30, the patient is on room air, breathing comfortably, with Sat 93%.
[2021-01-13 19:33] VITALS: BP 174/80; PULSE 87; RESP 18; TEMP 36.6; O2SAT 94
[2021-01-13] MEDS: 0.9 % Sodium Chloride Flush 3 ML SYRINGE IVFLUSH ×3 (20:19→20:29)
[2021-01-13] MEDS: Heparin Sodium,Porcine 5,000 UNIT/ML VIAL 5000 UNIT SUBCUT (20:19)
[2021-01-13] MEDS: Losartan Potassium 50 MG TABLET PO (20:20)
[2021-01-13] MEDS: Isosorbide Mononitrate 60 MG TAB.ER.24H PO (20:20)
[2021-01-14] VITALS (12 sets, daily range): BP systolic 133–220; BP diastolic 60–98; PULSE 71–84; RESP 18–20; TEMP 36.5–37.4; O2SAT 92–95; BMI 23.3
--- NOTE | 2021-01-14 02:41 | CONS_ITS ---
DATE OF SERVICE: HISTORY OF PRESENT ILLNESS: I was asked to assist in management of this 70-year-old patient, who has history of end-stage renal disease, on chronic hemodialysis, was brought to the hospital from the intermediate for increased confusion and was found to have elevated serum potassium. In summary, the patient has been refusing to go to dialysis and had a short dialysis on Tuesday. At the time of the consultation, the patient is obtunded and unable to give any history, and is currently having dialysis. Apparently, she was complaining of pain and had been increasingly confused with worsening shortness of breath. She normally receives dialysis at the [facility]. PAST MEDICAL HISTORY: Remarkable for end-stage renal disease, hypertension, diabetes mellitus, seizure disorder, opioid use, dementia, anemia, dyslipidemia, depression, and GERD. PAST SURGICAL HISTORY: Notable for peripheral vascular access placement. MEDICATIONS: Medications as inpatient and outpatient were reviewed. ALLERGIES: SHE IS ALLERGIC TO TUBERCULIN PPD. SOCIAL HISTORY: Does not smoke. FAMILY HISTORY: Negative for kidney disease. REVIEW OF SYSTEMS: Ten-point review of systems negative, except for pertinent in the history of present illness. PHYSICAL EXAMINATION: VITAL SIGNS: The blood pressure is 141/72, heart rate 84, respiratory rate 18, and afebrile. CONSTITUTIONAL: She is obtunded. HEAD: Atraumatic and normocephalic. NECK: Supple. LUNGS: Decreased breath sounds. CARDIOVASCULAR: S1 and S2. No rub. ABDOMEN: Obese and nontender. EXTREMITIES: With peripheral edema and she has a left arm AV fistula with palpable thrill and good bruit. LABORATORY DATA: Showed a sodium 139, potassium 6.7, chloride 96, CO2 23, BUN 84, and creatinine 10.21. White count 3.6, hemoglobin 12.5, and platelet count 118. IMPRESSION: 1. End-stage renal disease. 2. Pulmonary edema. 3. Hyperkalemia. PLAN: To resume her hemodialysis emergently. We will have her dialyzed on a low-potassium bath and optimize her volume status. We will resume her phosphate binders and have her on a renal diet. We will continue to follow closely along with the medical team. Thank you for allowing me to participate in the care of this patient. MD SARAY Porter/LEXY / [phone]
[2021-01-14] MEDS: Heparin Sodium,Porcine 5,000 UNIT/ML VIAL 5000 UNIT SUBCUT ×2 (05:53→20:30)
[2021-01-14 07:03] LABS: Basophils Percent Auto 0.8 % (0-2); Eosinophils Absolute Auto 0.1 X10*3/uL (0.0-0.4); Eosinophils Percent Auto 2.6 % (0-4); Hematocrit 39.2 % (37-47); Hemoglobin 12.9 g/dl (12.0-16.0); Imm Gran Abs Auto 0.02 X10*3/uL (0.00-0.03); Imm Gran Pct Auto 0.5 % (0.0-0.4); Lymphocytes Absolute Auto 0.7 X10*3/uL (1.2-4.9); Lymphocytes Percent Auto 16.8 % (20-40); MANUAL DIFF FLAG SCAN; Mean Corpuscular HGB Conc 32.9 g/dl (31.0-35.0); Mean Corpuscular Hemoglobin 28.7 pg (27.0-33.0); Mean Corpuscular Volume 87.3 fL (80-98); Mean Platelet Volume 10.1 fL (9.4-12.3); Monocytes Absolute Auto 0.4 X10*3/uL (0.1-1.2); Monocytes Percent Auto 10.3 % (2-11); Neutrophils Absolute Auto 2.7 X10*3/uL (2.0-8.3); Platelet Count 124 X10*3/uL (160-400); Red Blood Count 4.49 X10*6/uL (4.20-5.50); Red Cell Distribution Width 15.4 % (11.0-16.0); SCAN SMEAR FLAG 1; White Blood Count 3.9 X10*3/uL (4.8-10.8)
[2021-01-14 07:25] LABS: SLIDE REVIEW VERIFIED
[2021-01-14 07:49] LABS: Anion Gap 19 (12-20); Blood Urea Nitrogen 42 mg/dL (9-16); Calcium 9.2 mg/dL (8.4-10.2); Carbon Dioxide 26 mmol/L (22-29); Chloride 98 mmol/L (96-108); Estimated Glomerular Filt Rate 6; Glucose Random 70 mg/dL (60-115); Potassium 5.3 mmol/L (3.3-5.1); Sodium 138 mmol/L (135-145)
[2021-01-14] MEDS: 0.9 % Sodium Chloride Flush 3 ML SYRINGE IVFLUSH ×4 (09:17→23:49)
[2021-01-14] MEDS: amLODIPine Besylate 10 MG TABLET PO (09:17)
[2021-01-14] MEDS: Losartan Potassium 50 MG TABLET PO ×2 (09:18→20:31)
[2021-01-14] MEDS: hydrALAZINE HCl 25 MG TABLET PO (09:18)
[2021-01-14] MEDS: Docusate Sodium 100 MG CAPSULE PO ×2 (09:18→20:32)
[2021-01-14] MEDS: Sennosides 8.6 MG TABLET 17.2 MG PO (09:18)
[2021-01-14] MEDS: Aspirin 81 MG TAB.CHEW PO (09:18)
[2021-01-14] MEDS: LORazepam 0.5 MG TABLET PO ×2 (09:19→20:33)
[2021-01-14] MEDS: lamoTRIgine 100 MG TABLET PO (09:20)
--- NOTE | 2021-01-14 09:20 | MHC.CM.PN ---
Patient is here with baseline Dementia and AMS; CM spoke with Son/HCP/Michael @ [phone]. Patient is a LTC Resident of [facility] and the goal is for her to return there at time of dc. CM has initiated and will follow for dc planning. IMM addressed with Michael and the original is being mailed certified letter to him and a copy has been placed on the chart.
[2021-01-14] MEDS: Labetalol HCL 100 MG/20 ML VIAL 10 MG IVPUSH (09:46)
--- NOTE | 2021-01-14 10:13 | PC.NURSE ---
BP 220/90 at 09:[address] Weiner, IV Labetolol 10mg given as ordered, IT SERVICE CONTINUITY SUPERVISOR instructed to recheck BP manually at 10:30 and report results to JOANNE. JOANNE Bailey notified of this information.
--- NOTE | 2021-01-14 10:25 | MHC.CM.PN ---
Patient receives HD @ [facility] in [place] T,TH,SAT.
--- NOTE | 2021-01-14 11:32 | P.PNNP_ITS ---
Subjective Subjective Date of Service: 01/14/21 Interval history: Patient seen and examined feels better awake alert no complaints Physical Exam Vital Signs: Vital Signs: Last Vital Signs Temp 98.2 F 01/14/21 07:36 Pulse 84 01/14/21 09:46 Resp 18 01/14/21 07:36 BP 220/90 H 01/14/21 09:46 Pulse Ox 92 01/14/21 04:00 Body Mass Index 23.3 Const: General: comfortable and no acute distress HENMT: Head: Yes normocephalic and Yes atraumatic Neck: Neck: Yes supple Resp: Auscultation: diminished lung sounds Cardio: Heart sounds: S1 normal heart sound present and S2 normal heart sound present GI: Palpation (GI): Soft to palpation and nontender Extrem: General: No edema Objective Data Labs CBC & Chem 7: 01/14/21 05:50 01/14/21 05:50 Labs: Laboratory Results - last 24 hr 01/13/21 01/13/21 01/13/21 11:44 11:44 11:44 WBC 3.6 L RBC 4.28 Hgb 12.5 Hct 37.3 MCV 87.1 MCH 29.2 MCHC 33.5 RDW 15.6 Plt Count 118 L MPV 9.5 Immature Gran % (Auto) 0.3 Neut % (Auto) 68.7 Lymph % (Auto) 19.0 L [place] % (Auto) 9.2 Eos % (Auto) 2.2 Baso % (Auto) 0.6 Lymph # (Auto) 0.7 L [place] # (Auto) 0.3 Eos # (Auto) 0.1 Baso # (Auto) 0.0 Abs Immat Gran (auto) 0.01 Absolute Neuts (auto) 2.5 Absolute Nucleated RBC 0.000 Nucleated RBC % (auto) 0.0 Smear Tech's Comments VERIFIED PT 11.8 INR 1.0 APTT 36.4 Sodium 139 Potassium 6.7 H* Chloride 96 Carbon Dioxide 23 Anion Gap 27 H BUN 84 H* Creatinine 10.21 H* Estim Creat Clear Calc 4.7 Estimated GFR 4 Random Glucose 90 Lactic Acid Calcium 9.0 Magnesium 2.5 Total Bilirubin 0.3 Direct Bilirubin 0.2 AST 18 ALT 14 Alkaline Phosphatase 104 Ammonia Troponin I High Sens B-Natriuretic Peptide Total Protein 7.4 Albumin 4.2 Lipase 46 Urine Color Urine Appearance Urine pH Ur Specific [place] Urine Protein Urine Glucose (UA) Urine Ketones Urine Blood Urine Nitrite Ur Leukocyte Esterase Urine RBC Urine WBC Ur Squamous Epith Cells Amorphous Sediment Urine Bacteria COVID-19 (MARITZA) COVID-19 Clin Com 01/13/21 01/13/21 01/13/21 11:44 11:44 11:44 WBC RBC Hgb Hct MCV MCH MCHC RDW Plt Count MPV Immature Gran % (Auto) Neut % (Auto) Lymph % (Auto) [place] % (Auto) Eos % (Auto) Baso % (Auto) Lymph # (Auto) [place] # (Auto) Eos # (Auto) Baso # (Auto) Abs Immat Gran (auto) Absolute Neuts (auto) Absolute Nucleated RBC Nucleated RBC % (auto) Smear Tech's Comments PT INR APTT Sodium Potassium Chloride Carbon Dioxide Anion Gap BUN Creatinine Estim Creat Clear Calc Estimated GFR Random Glucose Lactic Acid 0.6 Calcium Magnesium Total Bilirubin Direct Bilirubin AST ALT Alkaline Phosphatase Ammonia Troponin I High Sens 41.6 H B-Natriuretic Peptide 588 H Total Protein Albumin Lipase Urine Color Urine Appearance Urine pH Ur Specific [place] Urine Protein Urine Glucose (UA) Urine Ketones Urine Blood Urine Nitrite Ur Leukocyte Esterase Urine RBC Urine WBC Ur Squamous Epith Cells Amorphous Sediment Urine Bacteria COVID-19 (MARITZA) Negative COVID-19 Clin Com See Note 01/13/21 01/13/21 01/13/21 11:45 12:58 14:20 WBC RBC Hgb Hct MCV MCH MCHC RDW Plt Count MPV Immature Gran % (Auto) Neut % (Auto) Lymph % (Auto) [place] % (Auto) Eos % (Auto) Baso % (Auto) Lymph # (Auto) [place] # (Auto) Eos # (Auto) Baso # (Auto) Abs Immat Gran (auto) Absolute Neuts (auto) Absolute Nucleated RBC Nucleated RBC % (auto) Smear Tech's Comments PT INR APTT Sodium Potassium Chloride Carbon Dioxide Anion Gap BUN Creatinine Estim Creat Clear Calc Estimated GFR Random Glucose Lactic Acid Calcium Magnesium Total Bilirubin Direct Bilirubin AST ALT Alkaline Phosphatase Ammonia 36 Troponin I High Sens 33.7 H B-Natriuretic Peptide Total Protein Albumin Lipase Urine Color STRAW Urine Appearance CLEAR Urine pH 8.0 Ur Specific [place] 1.015 Urine Protein 2+ H Urine Glucose (UA) 100 H Urine Ketones NEG Urine Blood 1+ H Urine Nitrite NEG Ur Leukocyte Esterase NEG Urine RBC 1-4 Urine WBC 0-2 Ur Squamous Epith Cells TRACE Amorphous Sediment 1+ Urine Bacteria NONE COVID-19 (MARITZA) COVID-19 Clin Com 01/14/21 01/14/21 05:50 05:50 WBC 3.9 L RBC 4.49 Hgb 12.9 Hct 39.2 MCV 87.3 MCH 28.7 MCHC 32.9 RDW 15.4 Plt Count 124 L MPV 10.1 Immature Gran % (Auto) 0.5 H Neut % (Auto) 69.0 Lymph % (Auto) 16.8 L [place] % (Auto) 10.3 Eos % (Auto) 2.6 Baso % (Auto) 0.8 Lymph # (Auto) 0.7 L [place] # (Auto) 0.4 Eos # (Auto) 0.1 Baso # (Auto) 0.0 Abs Immat Gran (auto) 0.02 Absolute Neuts (auto) 2.7 Absolute Nucleated RBC 0.000 Nucleated RBC % (auto) 0.0 Smear Tech's Comments VERIFIED PT INR APTT Sodium 138 Potassium 5.3 H D Chloride 98 Carbon Dioxide 26 Anion Gap 19 BUN 42 H Creatinine 6.81 H* Estim Creat Clear Calc 7.0 Estimated GFR 6 Random Glucose 70 Lactic Acid Calcium 9.2 Magnesium Total Bilirubin Direct Bilirubin AST ALT Alkaline Phosphatase Ammonia Troponin I High Sens B-Natriuretic Peptide Total Protein Albumin Lipase Urine Color Urine Appearance Urine pH Ur Specific [place] Urine Protein Urine Glucose (UA) Urine Ketones Urine Blood Urine Nitrite Ur Leukocyte Esterase Urine RBC Urine WBC Ur Squamous Epith Cells Amorphous Sediment Urine Bacteria COVID-19 (MARITZA) COVID-19 Clin Com Assessment & Plan Assessment and plan (1) ESRD (end stage renal disease): Status: Acute (2) Hyperkalemia: Status: Acute (3) Pulmonary edema: Status: Acute Assessment and Plan: HD per schedule volume optimization low potassium bath renal diet phosphate binders no need for VIJI Time Spent With Patient Time: Total time spent is greater than 50% in coordination of care (as documented) at patient's floor/unit and/or counseling patient:
[2021-01-14] MEDS: hydrALAZINE HCl 20 MG/ML VIAL 5 MG IVPUSH (12:23)
[2021-01-14] MEDS: Lactulose 20 GM/30 ML SOLUTION PO (12:56)
[2021-01-14] MEDS: Sodium Zirconium Cyclosilicate 5 GM POWD.PACK PO (12:56)
--- NOTE | 2021-01-14 14:03 | HO.PM.IMPN ---
Subjective Subjective Date of Service: 01/14/21 Interval History: the patient was seen and evaluated this morning Patient more awake and interactive this morning but seems to be confused Denies any fever, chills or shortness of breath at this point but has facial twitch changing and difficulty to find the right words while talking Blood pressure noticed to be elevated this morning of 190s over 90s No reported other overnight events. Systemic review: No fever, chills or weakness No chest pain, palpitation No shortness of breath or coughing No abdominal pain, nausea or vomiting No urinary symptoms No any rash or wounds Physical Exam Vital Signs: Vital Signs: Last Vital Signs Temp 98.2 F 01/14/21 11:53 Pulse 80 01/14/21 13:00 Resp 20 01/14/21 13:00 BP 165/75 H 01/14/21 13:00 Pulse Ox 93 01/14/21 11:53 Body Mass Index 23.3 Const: Other: Constitutional : More alert and interactive, oriented to self and place, anxious, not in distress Neck : Normal inspection, Supple Cardiovascular : RRR, S1 S2, trace bilateral lower extremity edema Respiratory : Fair bilateral air entry, basal fine crackles, no wheezes or rhonchi Gastrointestinal: soft, lax, Normal bowel sounds, Non tender Skin : Warm/Dry, No jaundice Neurological : Alert, oriented to self and place, anxious, has facial twitching, a No focal deficit Objective Data Current Medications Generic Name Dose Route Start Last Admin Trade Name Freq PRN Reason Stop Dose Admin Acetaminophen 975 mg 01/13/21 18:31 Acetaminophen 325 Mg Tablet PO Q8H PRN Pain Amlodipine Besylate 10 mg 01/14/21 09:00 01/14/21 09:17 Amlodipine Besylate 10 Mg Tablet PO 10 mg DAILY [facility] Administration Protocol Aspirin 81 mg 01/14/21 09:00 01/14/21 09:18 Aspirin 81 Mg Tab.Chew PO 81 mg DAILY PRAMOD Administration Atorvastatin Calcium 40 mg 01/13/21 21:00 01/13/21 20:27 Atorvastatin Calcium 40 Mg Tablet PO Not Given BEDTIME PRAMOD Calcium Carbonate 750 mg 01/13/21 19:04 Calcium Carbonate 750 Mg Tab.Chew PO Q4H PRN Dyspepsia Docusate Sodium 100 mg 01/13/21 21:00 01/14/21 09:18 Docusate Sodium 100 Mg Capsule PO 100 mg BID PRAMOD Administration Guaifenesin/Dextromethorphan 10 ml 01/13/21 18:31 Guaifenesin Dm 100/10/5 Ml 5 Ml Syrup PO Q4H PRN Cough Heparin Sodium (Porcine) 5,000 unit 01/13/21 18:31 01/14/21 05:53 Heparin Sodium,Porcine 5,000 Unit/Ml Vial SUBCUT 5,000 unit Q12H PRAMOD Administration Hydralazine HCl 50 mg 01/14/21 15:00 Hydralazine Hcl 50 Mg Tablet PO TID PRAMOD Protocol Isosorbide Mononitrate 60 mg 01/13/21 21:00 01/13/21 20:20 Isosorbide Mononitrate 60 Mg Tab.Er.24h PO 60 mg BEDTIME PRAMOD Administration Protocol Lactulose 20 gm 01/14/21 09:00 01/14/21 12:56 Lactulose 20 Gm/30 Ml Solution PO 20 gm Q48H PRAMOD Administration Lamotrigine 100 mg 01/14/21 09:00 01/14/21 09:20 Lamotrigine 100 Mg Tablet PO 100 mg DAILY PRAMOD Administration Lorazepam 0.5 mg 01/15/21 12:00 Lorazepam 0.5 Mg Tablet PO TuThSa@1200 [facility] Lorazepam 0.5 mg 01/13/21 21:00 01/14/21 09:19 Lorazepam 0.5 Mg Tablet PO 0.5 mg BID PRAMOD Administration Lorazepam 0.5 mg 01/14/21 07:42 Lorazepam 0.5 Mg Tablet PO Q4H PRN Anxiety Losartan Potassium 50 mg 01/13/21 21:00 01/14/21 09:18 Losartan Potassium 50 Mg Tablet PO 50 mg BID PRAMOD Administration Protocol Olanzapine 20 mg 01/13/21 21:00 01/13/21 20:28 Olanzapine 10 Mg Tablet PO Not Given BEDTIME PRAMOD Ondansetron HCl 4 mg 01/13/21 18:31 Ondansetron Hcl 4 Mg/2 Ml Vial IVPUSH Q8H PRN Nausea and Vomiting Oxycodone HCl 5 mg 01/14/21 07:42 Oxycodone Hcl Immed Release 5 Mg Tablet PO TUTHSA PRN Pain Oxycodone HCl 5 mg 01/14/21 07:42 Oxycodone Hcl Immed Release 5 Mg Tablet PO Q12H PRN Pain Pharmacy Consult 1 each 01/13/21 11:13 Consult Rx Perform Med Rec MISCELLANE ONCE PRN Consult order Polyethylene Glycol 17 gm 01/13/21 18:31 Polyethylene Glycol 3350 17 Gm Powd.Pack PO DAILY PRN Constipation Senna 17.2 mg 01/14/21 09:00 01/14/21 09:18 Sennosides 8.6 Mg Tablet PO 17.2 mg DAILY PRAMOD Administration Sevelamer Carbonate 2,400 mg 01/14/21 16:45 Sevelamer Carbonate 800 Mg Powd.Pack PO DIALYSIS X2 MOWEFR PRAMOD Sodium Chloride 1 spray 01/13/21 18:31 Sodium Chloride 0.65 % Nasal 44 Ml Sprbtl NOSTRIL-B Q4H PRN Allergy Symptoms Sodium Chloride 3 ml 01/13/21 18:31 01/14/21 09:17 0.9 % Sodium Chloride Flush 3 Ml Syringe IVFLUSH 3 ml QSHIFT PRAMOD Administration Sodium Chloride 3 ml 01/14/21 00:00 01/13/21 20:28 0.9 % Sodium Chloride Flush 3 Ml Syringe IVFLUSH 3 ml QSHIFT PRAMOD Administration Sodium Zirconium Cyclosilicate 5 gm 01/14/21 09:00 01/14/21 12:56 Sodium Zirconium Cyclosilicate 5 Gm Powd.Pack PO 5 gm [id number]@0900 PRAMOD Administration Labs CBC & Chem 7: 01/14/21 05:50 01/14/21 05:50 Assessment and Plan (1) Hyperkalemia: Status: Acute (2) ESRD (end stage renal disease): Status: Acute (3) Acute metabolic encephalopathy: Status: Acute (4) Pulmonary edema: Status: Acute Assessment and Plan: A 70 years old lady with PMH of hypertension, ESRD on dialysis, diabetes, epilepsy, dementia among others who presented to the hospital from long term for altered mentation and increased confusion as she were refusing dialysis for the last 2 sessions. Flash pulmonary edema, resolved Improved with BiPAP treatment in the Emergency hypertensive urgency Blood pressure significantly elevated this morning of 220/90 Received labetalol and I tried is seen IV Continue amlodipine and losartan To add hydralazine 50 mg t.i.d. Close monitoring of blood pressure ESRD requiring dialysis Missed 2 sessions Had dialysis session yesterday, plan for 1 tomorrow Nephrology following Phosphorous binders Hypertensive encephalopathy Mentation still altered and not sure if this is her baseline or not but she is mildly confused and having difficulties finding the right words Add hydralazine for better control blood pressure Avoid medications that might affect her mentation Recurrent reorientation Hyperkalemia Potassium of 5.3 this morning To give Kayexalate Plan for dialysis tomorrow Monitor BMP DVT PPX Heparin
--- NOTE | 2021-01-14 15:38 | PC.NURSE ---
1440 yelling and holding left side of chest. Assisted BTB with mantel craftsman states she had pressure Dr Vidales aware. EKG ordered. shows persistant AFIB no changes. skin W@D.VSS states pressure is gone at this time
[2021-01-14] MEDS: Sodium Polystyrene Sulfon/Sorb 15 GM/60 ML ORAL.SUSP 30 GM PO (15:47)
[2021-01-14] MEDS: hydrALAZINE HCl 50 MG TABLET PO ×2 (15:48→20:32)
[2021-01-14] MEDS: Acetaminophen 325 MG TABLET 975 MG PO (15:58)
[2021-01-14] MEDS: Atorvastatin Calcium 40 MG TABLET PO (20:31)
[2021-01-14] MEDS: OLANZapine 10 MG TABLET 20 MG PO (20:31)
[2021-01-14] MEDS: Isosorbide Mononitrate 60 MG TAB.ER.24H PO (20:32)
[2021-01-14] MEDS: oxyCODONE HCl Immed Release 5 MG TABLET PO (23:50)
[2021-01-15] MEDS: Acetaminophen 325 MG TABLET 975 MG PO ×2 (01:08→10:28)
[2021-01-15 03:26] VITALS: BP 133/59; PULSE 74; RESP 18; TEMP 36.6; O2SAT 94
[2021-01-15 05:48] VITALS: BMI 22.6
[2021-01-15] MEDS: Heparin Sodium,Porcine 5,000 UNIT/ML VIAL 5000 UNIT SUBCUT (05:48)
[2021-01-15 07:39] VITALS: BP 140/60; PULSE 65; RESP 20; TEMP 35.8; O2SAT 96
[2021-01-15 07:48] LABS: Anion Gap 20 (12-20); Blood Urea Nitrogen 64 mg/dL (9-16); Calcium 7.9 mg/dL (8.4-10.2); Carbon Dioxide 23 mmol/L (22-29); Chloride 96 mmol/L (96-108); Glucose Random 94 mg/dL (60-115); Potassium 4.4 mmol/L (3.3-5.1); Sodium 135 mmol/L (135-145)
[2021-01-15 07:51] LABS: Creatinine Clr Calc Pharmacy 5.5; Estimated Glomerular Filt Rate 5
[2021-01-15] MEDS: diphenhydrAMINE HCL 25 MG TABLET PO (10:29)
--- NOTE | 2021-01-15 13:40 | PM.DS ---
DS: Providers Provider Date of Service: 01/15/21 Date of admission: 01/13/21 13:51 Primary care physician: Damien Read MD DS: Diagnosis Discharge Diagnosis (1) Hyperkalemia: Status: Acute (2) ESRD (end stage renal disease): Status: Acute (3) Acute metabolic encephalopathy: Status: Acute (4) Pulmonary edema: Status: Acute DS: Medications Discharge Medications Home Medications: Home Medications Medication Instructions Recorded Confirmed Chloraseptic Total 1 valorie PO Q4H PRN 01/13/21 01/13/21 acetaminophen 975 mg PO Q8H PRN 01/13/21 01/13/21 amlodipine 1 tab PO DAILY 01/13/21 01/13/21 aspirin 1 tab PO DAILY 01/13/21 01/13/21 atorvastatin 1 tab PO BEDTIME 01/13/21 01/13/21 calcium carbonate 500 mg PO Q4H PRN 01/13/21 01/13/21 cetirizine [Zyrtec] 10 mg PO DAILY 01/13/21 01/13/21 cholecalciferol (vitamin D3) 1,250 mcg PO QMONTH 01/13/21 01/13/21 dextromethorphan-guaifenesin 10 ml PO Q4H PRN 01/13/21 01/13/21 docusate sodium 100 mg PO BID 01/13/21 01/13/21 hydrocortisone 1 appl TOPICAL QID PRN 01/13/21 01/13/21 iron fum-vit C-B complex-FA 1 tab PO DAILY 01/13/21 01/13/21 isosorbide mononitrate 60 mg PO BEDTIME 01/13/21 01/13/21 lactulose 30 ml PO Q OTHER DAY 01/13/21 01/13/21 lamotrigine 1 tab PO DAILY 01/13/21 01/13/21 lorazepam 0.5 mg PO BID 01/13/21 01/13/21 lorazepam 0.5 mg PO Q4H PRN 01/13/21 01/13/21 lorazepam 0.5 mg PO TUTHSA 01/13/21 01/13/21 losartan 1 tab PO BID 01/13/21 01/13/21 olanzapine 1 tab PO BEDTIME 01/13/21 01/13/21 oxycodone 5 mg PO Q12H PRN 01/13/21 01/13/21 oxycodone 5 mg PO TUTHSA PRN 01/13/21 01/13/21 polyethyl glycol-polyvinyl alc 2 drp OPHTHALMIC (EYE) Q2H PRN 01/13/21 01/13/21 polyethylene glycol 3350 17 g PO DAILY PRN 01/13/21 01/13/21 sennosides 17.2 mg PO DAILY 01/13/21 01/13/21 sevelamer carbonate 2,400 mg PO TUTHSA 01/13/21 01/13/21 sevelamer carbonate 2,400 mg PO USEASDIRECTD 01/13/21 01/13/21 sevelamer carbonate 2,400 mg PO USEASDIRECTD 01/13/21 01/13/21 simethicone 120 mg PO Q6H PRN 01/13/21 01/13/21 sodium chloride [Saline Nasal] 1 spray INTRANASAL Q4H PRN 01/13/21 01/13/21 sodium zirconium cyclosilicate 5 g PO SUMOWE 01/13/21 01/13/21 Previous Rx's Medication Instructions Recorded hydralazine 50 mg PO TID #90 tab 01/15/21 DS: Summary Hospital Course Hospital Course: 70 years old lady with PMH of hypertension, ESRD on dialysis, diabetes, epilepsy, dementia among others who presented to the hospital from group home for altered mentation and increased confusion as she were refusing dialysis for the last 2 sessions. The patient is not able to provide any meaningful history it was taken mainly from EMS records and emergency provider. The patient refused to finish her dialysis sessions Tuesday and refused to go to the 2nd session today. Noticed to have increase confusion and altered mentation. In the emergency she was noted to have significantly elevated potassium level 6.9 with elevated creatinine. Developed difficulty breathing and noticed to flash pulmonary edema requiring BiPAP support and ICU evaluation with plan was to admission to ICU with the patient improved after BiPAP and was able to get dialysis unit were she started dialysis. Hospital course 70 years old lady with PMH of hypertension, ESRD on dialysis, diabetes, epilepsy, dementia among others who presented to the hospital from group home for altered mentation and increased confusion as she were refusing dialysis for the last 2 sessions. Patient admitted with Flash pulmonary edema, hyperkalemia and hypertensive encephalopathy since noted to have systolic blood pressure in 200 range patient required treatment with BiPAP and underwent urgent hemodialysis, now shortness of breath has resolved patient seems to be at baseline, in regard to her elevated blood pressure she has been started on hydralazine 50 mg t.i.d. and has been continued on home medication amlodipine and losartan current blood pressure is stable, patient does not seem to be confused and seems to be at baseline as per conversation with patient's son Michael, therefore she is being transferred back to rehab facility with recommendation for continued dialysis on Tuesdays and Saturdays, her potassium has improved to 4.4 after dialysis Patient was followed closely by Nephrology. hypertensive urgency resolved continue home medications and hydralazine 50 mg t.i.d. follow blood pressure closely ESRD requiring dialysis continue dialysis Tuesdays and Saturdays and continue renagel scheduled Acute encephalopathy likely due to hypertension, and metabolic abnormality now resolved Time Spent with Patient Time attestation: Total time spent providing and/or coordinating discharge services: Discharge coordination time: Greater than 30 minutes Physical Exam Vital Signs: Vital Signs: Last Vital Signs Temp 96.4 F L 01/15/21 07:39 Pulse 65 01/15/21 07:39 Resp 20 01/15/21 07:39 BP 140/60 H 01/15/21 07:39 Pulse Ox 96 01/15/21 07:39 Body Mass Index 22.6 Constitutional : Awake alert speech clear, repeat sentences Cardiovascular : RRR, S1 S2, no edema Respiratory : Clear to auscultation no respiratory distress Gastrointestinal: soft,Normal bowel sounds, Non tender Skin : Warm/Dry, No jaundice Neurological : Alert, oriented to self and place, No focal deficit DS: Data Data Completed and Pending Labs on day of discharge: Laboratory Results - last 24 hr 01/15/21 05:35 Sodium 135 Potassium 4.4 Chloride 96 Carbon Dioxide 23 Anion Gap 20 BUN 64 H D Creatinine 8.61 H* Estim Creat Clear Calc 5.5 Estimated GFR 5 Random Glucose 94 Calcium 7.9 L D Discharge Plan Discharge Patient Disposition: [facility] Discharge Diagnosis: Hypertensive encephalopathy Referrals: [facility] [Outside] - 1 Week Damien Read MD [Primary Care Provider] - 1 Week Discharge Medications: New hydralazine 50 mg Tablet 50 mg PO TID Qty: 90 RF: 0 Continued losartan 50 mg tablet 1 tab PO BID RF: 0 atorvastatin 40 mg tablet 1 tab PO BEDTIME RF: 0 lorazepam 0.5 mg tablet 0.5 mg PO BID RF: 0 amlodipine 10 mg tablet 1 tab PO DAILY RF: 0 olanzapine 20 mg tablet 1 tab PO BEDTIME RF: 0 lamotrigine 100 mg tablet 1 tab PO DAILY RF: 0 sevelamer carbonate 800 mg tablet 2,400 mg PO TUTHSA RF: 0 sennosides 8.6 mg Tablet 17.2 mg PO DAILY RF: 0 acetaminophen 325 mg Tablet 975 mg PO Q8H PRN (Reason: Pain) RF: 0 polyethylene glycol 3350 17 gram Powder In Packet 17 g PO DAILY PRN (Reason: Constipation) RF: 0 cetirizine [Zyrtec] 10 mg Tablet 10 mg PO DAILY RF: 0 dextromethorphan-guaifenesin 10-100 mg/5 mL Syrup 10 ml PO Q4H PRN (Reason: Cough) RF: 0 isosorbide mononitrate 60 mg Tablet Extended Release 24 Hr 60 mg PO BEDTIME RF: 0 lorazepam 0.5 mg Tablet 0.5 mg PO TUTHSA RF: 0 lorazepam 0.5 mg Tablet 0.5 mg PO Q4H PRN (Reason: Anxiety) RF: 0 calcium carbonate 500 mg calcium (1,250 mg) Tablet 500 mg PO Q4H PRN (Reason: Dyspepsia) RF: 0 polyethyl glycol-polyvinyl alc 1-1 % Drops 2 drp OPHTHALMIC (EYE) Q2H PRN (Reason: Dry Eye(S)) RF: 0 hydrocortisone 1 % Cream 1 appl TOPICAL QID PRN (Reason: Rash) RF: 0 docusate sodium 100 mg Capsule 100 mg PO BID RF: 0 aspirin 81 mg Tablet,Chewable 1 tab PO DAILY RF: 0 iron fum-vit C-B complex-FA 100-1 mg Tablet 1 tab PO DAILY RF: 0 oxycodone 5 mg Tablet 5 mg PO TUTHSA PRN (Reason: Pain) RF: 0 oxycodone 5 mg Tablet 5 mg PO Q12H PRN (Reason: Pain) RF: 0 simethicone 60 mg Tablet 120 mg PO Q6H PRN (Reason: Abdominal Discomfort) RF: 0 sodium chloride [Saline Nasal] 0.65 % Aerosol,[place] 1 spray INTRANASAL Q4H PRN (Reason: Allergy Symptoms) RF: 0 lactulose 10 gram/15 mL Solution 30 ml PO Q OTHER DAY RF: 0 cholecalciferol (vitamin D3) 1,250 mcg (50,000 unit) Capsule 1,250 mcg PO QMONTH RF: 0 sevelamer carbonate 800 mg Tablet 2,400 mg PO USEASDIRECTD RF: 0 sevelamer carbonate 800 mg Tablet 2,400 mg PO USEASDIRECTD RF: 0 Chloraseptic Total 5-6-10 mg Lozenge 1 valorie PO Q4H PRN (Reason: Sore Throat) RF: 0 sodium zirconium cyclosilicate 5 gram Powder In Packet 5 g PO SUMOWE RF: 0 Discharge Orders: Discharge Order (Routine); Ordered 01/15/21 Ordered By: Luis Cotto Diet: low salt diet Activity on Discharge: As tolerated Stand Alone Forms: Patient Portal Discharge page Care Plan Goals: Continue all home medications as above yet been started on a new medication hydralazine 50 mg t.i.d. due to elevated blood pressure Health Concerns: Hypertension with uncontrolled blood pressure you have been started on hydralazine 50 mg t.i.d. follow blood pressure closely, and continue hemodialysis as scheduled since risk for pulmonary edema due to fluid overload Plan of Treatment: Continue hemodialysis as planned on Tuesday and Saturdays Assessment: See discharge summary
--- NOTE | 2021-01-15 13:47 | MHC.CM.PN ---
Per MD, Patient is medically cleared for dc to return to SNF today. Patient will dc to [facility] today at 3 PM, via [facility]. Patient's Son/HCP/Michael is aware of and in agreement with the dc plan. Last IMM addressed on 01/14/2021.
--- NOTE | 2021-01-15 14:06 | PM.PNNEP ---
Subjective Subjective Date of Service: 01/15/21 Interval history: seen and examined had HD denies fever, chest pain, shortness of breath or abdominal pain, nausea or vomiting Physical Exam Vital Signs: Vital Signs: Last Vital Signs Temp 96.4 F L 01/15/21 07:39 Pulse 65 01/15/21 07:39 Resp 20 01/15/21 07:39 BP 140/60 H 01/15/21 07:39 Pulse Ox 96 01/15/21 07:39 Body Mass Index 22.6 Const: General: comfortable and no acute distress HENMT: Head: Yes normocephalic and Yes atraumatic Neck: Neck: Yes supple Resp: Auscultation: diminished lung sounds Cardio: Heart sounds: S1 normal heart sound present and S2 normal heart sound present GI: Palpation (GI): Soft to palpation and nontender Extrem: General: No edema Objective Data Labs CBC & Chem 7: 01/14/21 05:50 01/15/21 05:35 Labs: Laboratory Results - last 24 hr 01/15/21 05:35 Sodium 135 Potassium 4.4 Chloride 96 Carbon Dioxide 23 Anion Gap 20 BUN 64 H D Creatinine 8.61 H* Estim Creat Clear Calc 5.5 Estimated GFR 5 Random Glucose 94 Calcium 7.9 L D Assessment & Plan Assessment and plan (1) ESRD (end stage renal disease): Status: Acute (2) Hyperkalemia: Status: Acute (3) Pulmonary edema: Status: Acute Assessment and Plan: HD today volume optimization low potassium bath renal diet phosphate binders no need for VIJI Time Spent With Patient Time: Total time spent is greater than 50% in coordination of care (as documented) at patient's floor/unit and/or counseling patient:
[2021-01-15] MEDS: amLODIPine Besylate 10 MG TABLET PO (14:35)
[2021-01-15] MEDS: lamoTRIgine 100 MG TABLET PO (14:35)
[2021-01-15] MEDS: LORazepam 0.5 MG TABLET PO (14:35)
[2021-01-15] MEDS: Aspirin 81 MG TAB.CHEW PO (14:36)
[2021-01-15] MEDS: hydrALAZINE HCl 50 MG TABLET PO (14:36)
[2021-01-15] MEDS: Losartan Potassium 50 MG TABLET PO (14:36)
[2021-01-15] MEDS: 0.9 % Sodium Chloride Flush 3 ML SYRINGE IVFLUSH (14:37)
--- NOTE | 2021-01-15 14:59 | MHC.INPTTRAN ---
Had dialysis today. Finished at 1430. Had morning BP meds at that time. Also given ativan 0.5mg at 1430 FYI States she needs a watch to wear at dialysis so she can keep track of time. then will be willing to go. Left arm fistula patent. Had po benadryl at 1030 for c/o itch with eff. thanks.
== END 2021-01-15 15:00 | disposition skilled nursing facility (03) | DRG 682 ==
LOC: HO.ED 10:47 → HO.EDOVER 13:56 → HO.IMC 18:15
PROVIDERS: Physician Assistant; Admitting Provider Student in an Organized Health Care Education/Training Program; Emergency Provider Emergency Medicine; PCP Internal Medicine; Visit Provider Hospitalist
DX: I12.0 Hypertensive chronic kidney disease with stage 5 chronic kidney disease or end stage renal disease (principal); J81.0 Acute pulmonary edema; N18.6 End stage renal disease; G93.41 Metabolic encephalopathy; I16.9 Hypertensive crisis, unspecified; E87.5 Hyperkalemia; F03.90 Unspecified dementia, unspecified severity, without behavioral disturbance, psychotic disturbance, mood disturbance, and anxiety; G40.909 Epilepsy, unspecified, not intractable, without status epilepticus; E11.22 Type 2 diabetes mellitus with diabetic chronic kidney disease; Z91.15 Patient's noncompliance with renal dialysis; Z20.822 Contact with and (suspected) exposure to COVID-19; Z99.2 Dependence on renal dialysis; Z79.82 Long term (current) use of aspirin; Z79.891 Long term (current) use of opiate analgesic; Z79.899 Other long term (current) drug therapy
CPT/HCPCS: 36415; 70450; 71045; 80048; 80076; 81001; 82140; 83605; 83690; 83735; 83880; 84484; 85025; 85610; 85730; 87635; 90999; 93005; 96365; 96366; 96372; 96375; 99285; J0610; J2060; Q0163

== ENCOUNTER → 2022-01-01 13:31 | Outpatient (BNVA) | payer MEDICARE, MEDICAID, SELFPAY | PROVIDERS: PCP Internal Medicine; Visit Provider Nurse Practitioner | DX: Z12.11 Encounter for screening for malignant neoplasm of colon (principal); N18.6 End stage renal disease; I50.9 Heart failure, unspecified; J96.01 Acute respiratory failure with hypoxia; R19.5 Other fecal abnormalities; Z99.2 Dependence on renal dialysis | CPT/HCPCS: 99212 ==

== ENCOUNTER 2022-01-05 02:30 | Inpatient (IN) | payer MEDICARE, MEDICAID, SELFPAY ==
[2022-01-05] VITALS (16 sets, daily range): BP systolic 139–205; BP diastolic 59–86; PULSE 70–86; RESP 15–22; TEMP 36.3–36.6; O2SAT 89–100; BMI 24.3
--- NOTE | ~2022-01-05 | XR_ITS ---
EXAMINATION: XR CHEST CLINICAL INFORMATION: Shortness of breath COMPARISON: 01/13/2021 TECHNIQUE: Frontal view of the chest was obtained. FINDINGS: The lungs are well expanded. Bronchial wall thickening with patchy opacities bilaterally. No pleural effusion or pneumothorax. The cardiomediastinal silhouette is normal in size with a calcified aorta. XR/XR chest 1V IMPRESSION: Bronchial wall thickening with patchy opacities. Appearance could represent small airways process versus mild edema.
--- NOTE | 2022-01-05 02:41 | ECG_ITS ---
Test Reason : DYSPENEA Blood Pressure : / mmHG Vent. Rate : 070 BPM Atrial Rate : 070 BPM P-R Int : 212 ms QRS Dur : 154 ms QT Int : 452 ms P-R-T Axes : 068 -09 100 degrees QTc Int : 488 ms Sinus rhythm with 1st degree A-V block Left bundle branch block Abnormal ECG When compared with ECG of 13-JAN-2021 11:20, No significant change was found Referred By: Milli Emery Electronically Signed By:GLORIA GARIBAY MD
--- NOTE | 2022-01-05 02:48 | ED.SOB ---
HPI - SOB/Dyspnea General Chief Complaint: Dyspnea Stated Complaint: SoB Time Seen by Provider: 01/05/22 02:40 Source: patient Mode of arrival: EMS History of Present Illness HPI Narrative: 71-year-old female brought in by EMS for complaints of onset of shortness of breath today and found to be 86% on room air, patient has history pulmonary edema is currently ESRD and had dialysis. Patient responded well to being placed on 2 L of nasal cannula. Otherwise, she denies any fever, chills, GI or symptoms and denies any chest pain/palpitations. In addition, she denies any lower extremity swelling. PMH: Hypertension, ESRD on dialysis, diabetes, epilepsy, dementia Related Data Home Medications Medication Instructions Recorded Confirmed acetaminophen 325 mg tablet 975 mg PO Q8H PRN 01/13/21 01/13/21 amlodipine 10 mg tablet 1 tab PO DAILY 01/13/21 01/13/21 aspirin 81 mg chewable tablet 1 tab PO DAILY 01/13/21 01/13/21 atorvastatin 40 mg tablet 1 tab PO BEDTIME 01/13/21 01/13/21 calcium carbonate 500 mg calcium 500 mg PO Q4H PRN 01/13/21 01/13/21 (1,250 mg) tablet cholecalciferol (vitamin D3) 1,250 1,250 mcg PO QMONTH 01/13/21 01/13/21 mcg (50,000 unit) capsule dextromethorphan 5 mg-benzocaine 6 1 valorie PO Q4H PRN 01/13/21 01/13/21 mg-menthol 10 mg lozenges (Chloraseptic Total) dextromethorphan-guaifenesin 10 10 ml PO Q4H PRN 01/13/21 01/13/21 mg-100 mg/5 mL oral syrup docusate sodium 100 mg capsule 100 mg PO BID 01/13/21 01/13/21 hydrocortisone 1 % topical cream 1 appl TOPICAL QID PRN 01/13/21 01/13/21 iron fum-vit C-B complex-FA 100 1 tab PO DAILY 01/13/21 01/13/21 mg-1 mg tablet isosorbide mononitrate 60 mg 60 mg PO BEDTIME 01/13/21 01/13/21 tablet,extended release 24 hr lactulose 10 gram/15 mL oral 30 ml PO Q OTHER DAY 01/13/21 01/13/21 solution lamotrigine 100 mg tablet 1 tab PO DAILY 01/13/21 01/13/21 lorazepam 0.5 mg tablet 0.5 mg PO BID 01/13/21 01/13/21 lorazepam 0.5 mg tablet 0.5 mg PO Q6H PRN 01/13/21 01/13/21 losartan 50 mg tablet 1 tab PO DAILY 01/13/21 01/13/21 olanzapine 20 mg tablet 1 tab PO BEDTIME 01/13/21 01/13/21 polyethylene glycol 1 %-polyvinyl 2 drp OPHTHALMIC (EYE) Q2H PRN 01/13/21 01/13/21 alcohol 1 % eye drops polyethylene glycol 3350 17 gram 17 g PO DAILY PRN 01/13/21 01/13/21 oral powder packet sennosides 8.6 mg tablet 17.2 mg PO DAILY 01/13/21 01/13/21 sevelamer carbonate 800 mg tablet 1,600 mg PO TUTHSA 01/13/21 01/13/21 sevelamer carbonate 800 mg tablet 1,600 mg PO USEASDIRECTD 01/13/21 01/13/21 simethicone 60 mg tablet 120 mg PO Q6H PRN 01/13/21 01/13/21 sodium chloride 0.65 % nasal spray 1 spray INTRANASAL Q4H PRN 01/13/21 01/13/21 aerosol (Saline Nasal) duloxetine 60 mg capsule,delayed 60 mg PO DAILY 01/01/22 release nifedipine 90 mg tablet,extended mg PO 01/01/22 release cholecalciferol (vitamin D3) 1,250 1,250 mcg PO QMONTH 01/05/22 01/05/22 mcg (50,000 unit) tablet metoprolol succinate 50 mg 1 tab PO DAILY 01/05/22 01/05/22 tablet,extended release 24 hr olanzapine 5 mg tablet 1 tab PO DAILY 01/05/22 01/05/22 vitamin B comp no.3-folic acid 1 1 tab PO DAILY 01/05/22 01/05/22 mg-vit C 60 mg-biotin 300 mcg tablet (Nephro-Fannie Rx) Previous Rx's Medication Instructions Recorded hydralazine 50 mg tablet 50 mg PO TID #90 tab 01/15/21 Allergies Allergy/AdvReac Type Severity Reaction Status Date / Time tuberculin,PPD,multi-puncture Allergy Unknown UNKNOWN Verified 01/01/22 13:45 [TUBERCULIN,PPD,MULTI-PUNCTURE] Review of Systems Review of Systems: Pertinent positives and negatives as stated in HPI 10 point review of systems is otherwise negative. [facility] Past Medical History Source: nursing notes reviewed Medical History (Updated 01/05/22 @ 05:51 by Milli Emery MD) Anemia Asthma DM2 (diabetes mellitus, type 2) ESRD (end stage renal disease) ESRD (end stage renal disease) on dialysis GERD without esophagitis Major depressive disorder Unspecified dementia with behavioral disturbance Surgical History Hx of section Hx of colonoscopy Hx of lumpectomy Family History Family History Sister Asthma Father Diabetes Son Diabetes Social History Social History Household Members: Unknown / Unable to assess Unable to assess alcohol history related to: Unknown Alcohol intake: unknown Advance Directives: Yes Advance Directives on File: Yes Advance Directives Date on File: 01/13/21 service: No Current occupational status: retired Physical Exam Vital Signs: Vital Signs: Last Vital Signs Temp 98 F 01/05/22 02:42 Pulse 72 01/05/22 05:42 Resp 15 01/05/22 05:42 BP 139/81 01/05/22 05:04 Pulse Ox 95 01/05/22 05:42 Oxygen Flow Rate 2 01/05/22 02:37 BMI result Body Mass Index 24.3 VITAL SIGNS: Reviewed. GENERAL: Well developed, well nourished, in no acute distress. HEAD: Normocephalic/atraumatic EYES: PERRLA, EOMI EARS: Ext canals without abnormality OROPHARYNX: no oral lesions noted, posterior pharynx clear LUNGS: Bibasilar decrease in breath sounds with rales and tachypnea. SpO2<98> on supplemental oxygen 2 L nasal cannula CARDIOVASCULAR: Regular rate and rhythm without noted murmurs, no JVD or lower extremity edema. ABDOMEN: Soft, non-tender, non-distended with bowel sounds. MUSCULOSKELETAL: No tenderness, deformities, or effusions noted on gross inspection. EXTREMITIES: No cyanosis, clubbing or edema. SKIN: Inspection of the skin reveals no rashes, ulcerations, jaundice, pallor, or petechiae. NEUROLOGIC: Alert and oriented x 4. Strength and sensation to light touch were grossly intact x 4. Course Course Course Narrative: 71-year-old female with history and clinical presentation suggestive of hypertensive induced pulmonary edema, patient received 1/2 inch of nitro and placed on supplemental oxygen. Basic labs and workup will be obtained. Review of all investigations demonstrates acute respiratory failure likely secondary to hypertensive induced pulmonary edema. Patient responded well to nitro paste and was diuresed as well. Patient is refusing Be catheter. This case was discussed with the inpatient hospitalist who accepts admission. MDM - SOB/Dyspnea Lab Data Result diagrams: 01/05/22 03:03 01/05/22 03:53 Labs: Lab Results 01/05/22 01/05/22 01/05/22 Range/Units 02:59 02:59 03:02 WBC (4.8-10.8) X10*3/uL RBC (4.20-5.50) X10*6/uL Hgb (12.0-16.0) g/dl Hct (37.0-47.0) % MCV (80.0-98.0) fL MCH (27.0-33.0) pg MCHC (31.0-35.0) g/dl RDW (11.0-16.0) % Plt Count (160-400) X10*3/uL MPV (9.4-12.3) fL Immature Gran % (Auto) (0.0-0.4) % Neut % (Auto) (45-73) % Lymph % (Auto) (20-40) % Chase % (Auto) (2-11) % Eos % (Auto) (0-4) % Baso % (Auto) (0-2) % Lymph # (Auto) (1.2-4.9) X10*3/uL Chase # (Auto) (0.1-1.2) X10*3/uL Eos # (Auto) (0.0-0.4) X10*3/uL Baso # (Auto) (0.0-0.2) X10*3/uL Abs Immat Gran (auto) (0.00-0.03) X10*3/uL Absolute Neuts (auto) (2.0-8.3) x10*3/uL Absolute Nucleated RBC (0.0-0.012) X10*3/uL Nucleated RBC % (auto) (0.0-0.2) /100WBC PT 11.6 (9.9-13.0) SEC INR 1.0 (0.9-1.1) VBG pH (7.32-7.43) VBG pCO2 mmHg VBG pO2 mmHg VBG HCO3 (22-26) mmol/L VBG O2 Saturation % VBG Base Excess mmol/L Sodium (135-145) mmol/L Potassium (3.3-5.1) mmol/L Chloride (96-108) mmol/L Carbon Dioxide (22-29) mmol/L Anion Gap (12-20) BUN (9-16) mg/dL Creatinine (0.5-1.4) mg/dL Estim Creat Clear Calc Estimated GFR Random Glucose (60-115) mg/dL Lactic Acid (0.5-2.0) mmol/L Calcium (8.4-10.2) mg/dL Total Bilirubin (0.0-1.0) mg/dL AST (5-31) U/L ALT (0-31) U/L Alkaline Phosphatase (39-117) U/L B-Natriuretic Peptide (<100) pg/mL Total Protein (6.5-8.0) g/dL Albumin (3.5-5.0) g/dL COVID-19 (MARITZA) Negative (Negative) COVID-19 Clin Com See Note Influenza Type A (SHERWIN) Negative (Negative) Influenza Type B (SHERWIN) Negative (Negative) Influenza A & B Note See Note 01/05/22 01/05/22 01/05/22 Range/Units 03:03 03:03 03:04 WBC 7.5 (4.8-10.8) X10*3/uL RBC 2.97 L (4.20-5.50) X10*6/uL Hgb 9.2 L (12.0-16.0) g/dl Hct 27.4 L (37.0-47.0) % MCV 92.3 (80.0-98.0) fL MCH 31.0 (27.0-33.0) pg MCHC 33.6 (31.0-35.0) g/dl RDW 16.0 (11.0-16.0) % Plt Count 158 L (160-400) X10*3/uL MPV 9.0 L (9.4-12.3) fL Immature Gran % (Auto) 0.3 (0.0-0.4) % Neut % (Auto) 86.8 H (45-73) % Lymph % (Auto) 5.1 L (20-40) % Chase % (Auto) 4.8 (2-11) % Eos % (Auto) 2.3 (0-4) % Baso % (Auto) 0.7 (0-2) % Lymph # (Auto) 0.4 L (1.2-4.9) X10*3/uL Chase # (Auto) 0.4 (0.1-1.2) X10*3/uL Eos # (Auto) 0.2 (0.0-0.4) X10*3/uL Baso # (Auto) 0.1 (0.0-0.2) X10*3/uL Abs Immat Gran (auto) 0.02 (0.00-0.03) X10*3/uL Absolute Neuts (auto) 6.5 (2.0-8.3) x10*3/uL Absolute Nucleated RBC 0.000 (0.0-0.012) X10*3/uL Nucleated RBC % (auto) 0.0 (0.0-0.2) /100WBC PT (9.9-13.0) SEC INR (0.9-1.1) VBG pH (7.32-7.43) VBG pCO2 mmHg VBG pO2 mmHg VBG HCO3 (22-26) mmol/L VBG O2 Saturation % VBG Base Excess mmol/L Sodium (135-145) mmol/L Potassium (3.3-5.1) mmol/L Chloride (96-108) mmol/L Carbon Dioxide (22-29) mmol/L Anion Gap (12-20) BUN (9-16) mg/dL Creatinine (0.5-1.4) mg/dL Estim Creat Clear Calc Estimated GFR Random Glucose (60-115) mg/dL Lactic Acid 0.6 (0.5-2.0) mmol/L Calcium (8.4-10.2) mg/dL Total Bilirubin (0.0-1.0) mg/dL AST (5-31) U/L ALT (0-31) U/L Alkaline Phosphatase (39-117) U/L B-Natriuretic Peptide 1587 H (<100) pg/mL Total Protein (6.5-8.0) g/dL Albumin (3.5-5.0) g/dL COVID-19 (MARITZA) (Negative) COVID-19 Clin Com Influenza Type A (SHERWIN) (Negative) Influenza Type B (SHERWIN) (Negative) Influenza A & B Note 01/05/22 01/05/22 Range/Units 03:08 03:53 WBC (4.8-10.8) X10*3/uL RBC (4.20-5.50) X10*6/uL Hgb (12.0-16.0) g/dl Hct (37.0-47.0) % MCV (80.0-98.0) fL MCH (27.0-33.0) pg MCHC (31.0-35.0) g/dl RDW (11.0-16.0) % Plt Count (160-400) X10*3/uL MPV (9.4-12.3) fL Immature Gran % (Auto) (0.0-0.4) % Neut % (Auto) (45-73) % Lymph % (Auto) (20-40) % Chase % (Auto) (2-11) % Eos % (Auto) (0-4) % Baso % (Auto) (0-2) % Lymph # (Auto) (1.2-4.9) X10*3/uL Chase # (Auto) (0.1-1.2) X10*3/uL Eos # (Auto) (0.0-0.4) X10*3/uL Baso # (Auto) (0.0-0.2) X10*3/uL Abs Immat Gran (auto) (0.00-0.03) X10*3/uL Absolute Neuts (auto) (2.0-8.3) x10*3/uL Absolute Nucleated RBC (0.0-0.012) X10*3/uL Nucleated RBC % (auto) (0.0-0.2) /100WBC PT (9.9-13.0) SEC INR (0.9-1.1) VBG pH 7.33 (7.32-7.43) VBG pCO2 41 mmHg VBG pO2 97 mmHg VBG HCO3 22 (22-26) mmol/L VBG O2 Saturation 97.0 % VBG Base Excess -3.6 mmol/L Sodium 135 (135-145) mmol/L Potassium 6.3 H* D (3.3-5.1) mmol/L Chloride 98 (96-108) mmol/L Carbon Dioxide 20 L (22-29) mmol/L Anion Gap 23 H (12-20) BUN 91 H (9-16) mg/dL Creatinine 7.54 H* (0.5-1.4) mg/dL Estim Creat Clear Calc 6.7 Estimated GFR 5 Random Glucose 124 H (60-115) mg/dL Lactic Acid (0.5-2.0) mmol/L Calcium 8.2 L (8.4-10.2) mg/dL Total Bilirubin 0.4 (0.0-1.0) mg/dL AST 16 (5-31) U/L ALT 15 (0-31) U/L Alkaline Phosphatase 75 D (39-117) U/L B-Natriuretic Peptide (<100) pg/mL Total Protein 7.0 (6.5-8.0) g/dL Albumin 3.8 (3.5-5.0) g/dL COVID-19 (MARITZA) (Negative) COVID-19 Clin Com Influenza Type A (SHERWIN) (Negative) Influenza Type B (SHERWIN) (Negative) Influenza A & B Note ECG Data Attestation: I personally reviewed and interpreted this ECG as follows: Prior ECG tracings: available for review Interpretation: Sinus rhythm with first-degree AV block HR-70, LBBB, no STEMI Critical Care Time Critical Care Time Critical Care Time: Yes Total Critical Care Time: 30 Attestation: I personally attest to this time spent taking care of the patient. Discharge Plan Discharge Clinical Impression: Acute respiratory failure, Hypoxia, Pulmonary edema Patient Disposition: Admitted As Inpatient Prescriptions: No Action losartan 50 mg tablet 1 tab PO DAILY 0RF atorvastatin 40 mg tablet 1 tab PO BEDTIME 0RF lorazepam 0.5 mg tablet 0.5 mg PO BID 0RF amlodipine 10 mg tablet 1 tab PO DAILY 0RF olanzapine 20 mg tablet 1 tab PO BEDTIME 0RF lamotrigine 100 mg tablet 1 tab PO DAILY 0RF sevelamer carbonate 800 mg tablet 1,600 mg PO TUTHSA 0RF Rx Instructions: PRIOR TO DIALYSIS sennosides 8.6 mg Tablet 17.2 mg PO DAILY 0RF acetaminophen 325 mg Tablet 975 mg PO Q8H PRN (Reason: Pain) 0RF polyethylene glycol 3350 17 gram Powder In Packet 17 g PO DAILY PRN (Reason: Constipation) 0RF dextromethorphan-guaifenesin 10-100 mg/5 mL Syrup 10 ml PO Q4H PRN (Reason: Cough) 0RF isosorbide mononitrate 60 mg Tablet Extended Release 24 Hr 60 mg PO BEDTIME 0RF lorazepam 0.5 mg Tablet 0.5 mg PO Q6H PRN (Reason: Anxiety) 0RF Rx Instructions: Do not give within 1 hours of scheduled dose calcium carbonate 500 mg calcium (1,250 mg) Tablet 500 mg PO Q4H PRN (Reason: Dyspepsia) 0RF polyethyl glycol-polyvinyl alc 1-1 % Drops 2 drp OPHTHALMIC (EYE) Q2H PRN (Reason: Dry Eye(S)) 0RF hydrocortisone 1 % Cream 1 appl TOPICAL QID PRN (Reason: Rash) 0RF docusate sodium 100 mg Capsule 100 mg PO BID 0RF aspirin 81 mg Tablet,Chewable 1 tab PO DAILY 0RF iron fum-vit C-B complex-FA 100-1 mg Tablet 1 tab PO DAILY 0RF simethicone 60 mg Tablet 120 mg PO Q6H PRN (Reason: Abdominal Discomfort) 0RF sodium chloride [Saline Nasal] 0.65 % Aerosol,Bondurant 1 spray INTRANASAL Q4H PRN (Reason: Allergy Symptoms) 0RF lactulose 10 gram/15 mL Solution 30 ml PO Q OTHER DAY 0RF cholecalciferol (vitamin D3) 1,250 mcg (50,000 unit) Capsule 1,250 mcg PO QMONTH 0RF sevelamer carbonate 800 mg Tablet 1,600 mg PO USEASDIRECTD 0RF Rx Instructions: TID SUMOWEFR WITH MEALS Chloraseptic Total 5-6-10 mg Lozenge 1 valorie PO Q4H PRN (Reason: Sore Throat) 0RF hydralazine 50 mg Tablet 50 mg PO TID Qty: 90 0RF Protocol: Hold for SBP< HOLD for SBP < : 90 metoprolol succinate 50 mg tablet extended release 24 hr 1 tab PO DAILY 0RF olanzapine 5 mg tablet 1 tab PO DAILY 0RF Nephro-Fannie Rx 1-60-300 mg-mg-mcg Tablet 1 tab PO DAILY 0RF cholecalciferol (vitamin D3) 1,250 mcg (50,000 unit) Tablet 1,250 mcg PO QMONTH 0RF duloxetine 60 mg capsule,delayed release(DR/EC) 60 mg PO DAILY 0RF nifedipine 90 mg tablet extended release PO 0RF
[2022-01-05] MEDS: Nitroglycerin 2 % Oint 1 GM Packet 0.5 INCH TRANSDERMA (02:49)
[2022-01-05 03:10] LABS: MANUAL DIFF FLAG NO
[2022-01-05 03:11] LABS: Basophils Absolute Auto 0.1 X10*3/uL (0.0-0.2); Basophils Percent Auto 0.7 % (0-2); Eosinophils Absolute Auto 0.2 X10*3/uL (0.0-0.4); Eosinophils Percent Auto 2.3 % (0-4); Hematocrit 27.4 % (37.0-47.0); Hemoglobin 9.2 g/dl (12.0-16.0); Imm Gran Abs Auto 0.02 X10*3/uL (0.00-0.03); Imm Gran Pct Auto 0.3 % (0.0-0.4); Lymphocytes Absolute Auto 0.4 X10*3/uL (1.2-4.9); Lymphocytes Percent Auto 5.1 % (20-40); Mean Corpuscular HGB Conc 33.6 g/dl (31.0-35.0); Mean Corpuscular Volume 92.3 fL (80.0-98.0); Monocytes Absolute Auto 0.4 X10*3/uL (0.1-1.2); Monocytes Percent Auto 4.8 % (2-11); Neutrophils Absolute Auto 6.5 x10*3/uL (2.0-8.3); Neutrophils Percent Auto 86.8 % (45-73); Platelet Count 158 X10*3/uL (160-400); Red Blood Count 2.97 X10*6/uL (4.20-5.50); White Blood Count 7.5 X10*3/uL (4.8-10.8)
[2022-01-05 03:16] LABS: Venous Blood Gas Refer to POC result
[2022-01-05 03:16] LABS: VBG Base Excess -3.6 mmol/L; VBG HCO3 22 mmol/L (22-26); VBG pCO2 41 mmHg; VBG pH 7.33 (7.32-7.43); VBG pO2 97 mmHg
[2022-01-05 03:17] LABS: Prothrombin Time 11.6 SEC (9.9-13.0)
[2022-01-05 03:21] LABS: Lactic Acid 0.6 mmol/L (0.5-2.0)
[2022-01-05 03:25] LABS: COVID-19 Test Negative (Negative); IDNOW Serial# 16C4AD1C; IDNOW Serial# 55D5AD1C; Influenza A Negative (Negative); Influenza B2 Negative (Negative)
[2022-01-05 03:32] LABS: B Type Natriuretic Peptide 1587 pg/mL (<100)
--- NOTE | 2022-01-05 04:13 | PC.NURSE ---
pt ambulated to BR using walker and standby contact guard. pt ambulated while on 2lpm via nc. pt increased WOB upon returning to room desat to 88% on 2lpm, after a couple min of rest pt improved to 94% on 2lpm
[2022-01-05] MEDS: Furosemide 100 MG/10 ML VIAL 60 MG IVPUSH (04:19)
[2022-01-05 04:33] LABS: Alanine Aminotransferase 15 U/L (0-31); Albumin Level 3.8 g/dL (3.5-5.0); Alkaline Phosphatase 75 U/L (39-117); Anion Gap 23 (12-20); Aspartate Amino Transferase 16 U/L (5-31); Bilirubin Total 0.4 mg/dL (0.0-1.0); Blood Urea Nitrogen 91 mg/dL (9-16); Calcium 8.2 mg/dL (8.4-10.2); Carbon Dioxide 20 mmol/L (22-29); Chloride 98 mmol/L (96-108); Creatinine Clr Calc Pharmacy 6.7; Estimated Glomerular Filt Rate 5; Glucose Random 124 mg/dL (60-115); Potassium 6.3 mmol/L (3.3-5.1); Sodium 135 mmol/L (135-145)
--- NOTE | 2022-01-05 04:36 | PC.NURSE ---
Notified [employer] for critical Labs K 6.3 Creat 7.54
--- NOTE | 2022-01-05 04:42 | PC.NURSE ---
MD ordered indwelling lopez catheter. pt admanent that she does not want a lopez. MD aware.
--- NOTE | 2022-01-05 05:41 | PC.NURSE ---
pt sleeping, ambulated to BR with assist of electrical cad technician but unable to void
--- NOTE | 2022-01-05 05:58 | P.HPHOSP_ITS ---
History of Present Illness Date of Service: 01/05/22 Chief Complaint: shortness of breath this is a 71-year-old female with past medical history of anemia, asthma, diabetes, ESRD on dialysis on Tuesday and Tuesday, GERD, depression, who presents to the hospital with complaints of shortness of breath. Patient reports that her symptoms started yesterday. Patient reports compliance with dialysis her last session was on Tuesday, patient reports minimal cough that is nonproductive, no chest pain, no abdominal pain nausea or vomiting, no diarrhea constipation, no urinary symptoms. Patient reports that she does produce urine but is not daily. She is not on a water pill. She reports no lower extremity edema. but has orthopnea and PND. And is short of breath on minimal exertion. No headache or change in vision, no urinary symptoms at this time. Arrival to the ED patient hemodynamically stable with hypoxia on room air of 85%, patient currently on 2 L of oxygen satting 95%. Patient was also noted to be hypertensive. Labs are significant for WBC count of 7.5, hemoglobin of 9.2 which is lower that her baseline of 12.9 about a year ago, a medical histories of 0.4, potassium of 6.3, creatinine of 7.54, BNP of 1587, UA pending, chest x-ray shows bronchial wall thickening with patchy opacities, this could represent small airway process versus mild edema patient will be admitted for further management Review of Systems Review of Systems: Yes all other systems are reviewed and are negative [facility] Medical History Anemia Asthma DM2 (diabetes mellitus, type 2) ESRD (end stage renal disease) ESRD (end stage renal disease) on dialysis GERD without esophagitis Major depressive disorder Unspecified dementia with behavioral disturbance Family History Sister Asthma Father Diabetes Son Diabetes Surgical History Hx of section Hx of colonoscopy Hx of lumpectomy Social History Household Members: Unknown / Unable to assess Unable to assess alcohol history related to: Unknown Alcohol intake: unknown Advance Directives: Yes Advance Directives on File: Yes Advance Directives Date on File: 01/13/21 service: No Current occupational status: retired Meds Allergies Allergy/AdvReac Type Severity Reaction Status Date / Time tuberculin,PPD,multi-puncture Allergy Unknown UNKNOWN Verified 01/01/22 13:45 [TUBERCULIN,PPD,MULTI-PUNCTURE] Active Medications: Current Medications Acetaminophen (Acetaminophen 325 Mg Tablet) 650 mg PO Q6H PRN PRN Reason: Pain, Mild (Pain Scale 1-3) Heparin Sodium (Porcine) (Heparin Sodium,Porcine 5,000 Unit/Ml Vial) 5,000 unit SUBCUT Q12H [facility] Calcium Gluconate (Calcium Gluconate) 2 gm in 100 mls @ 50 mls/hr IV ONCE ONE Stop: 01/05/22 07:02 Ondansetron HCl (Ondansetron Hcl 4 Mg/2 Ml Vial) 4 mg IVPUSH Q8H PRN PRN Reason: Nausea and Vomiting Sodium Chloride (0.9 % Sodium Chloride Flush 3 Ml Syringe) 3 ml IVFLUSH QSHIFT [facility] Home Medications Medication Instructions Recorded Confirmed Last Taken Type acetaminophen 325 mg tablet 975 mg PO Q8H PRN 01/13/21 01/13/21 Unknown History amlodipine 10 mg tablet 1 tab PO DAILY 01/13/21 01/13/21 Unknown History aspirin 81 mg chewable tablet 1 tab PO DAILY 01/13/21 01/13/21 Unknown History atorvastatin 40 mg tablet 1 tab PO BEDTIME 01/13/21 01/13/21 Unknown History calcium carbonate 500 mg calcium 500 mg PO Q4H PRN 01/13/21 01/13/21 Unknown History (1,250 mg) tablet cholecalciferol (vitamin D3) 1,250 1,250 mcg PO QMONTH 01/13/21 01/13/21 01/11/21 History mcg (50,000 unit) capsule dextromethorphan 5 mg-benzocaine 6 1 valorie PO Q4H PRN 01/13/21 01/13/21 Unknown History mg-menthol 10 mg lozenges (Chloraseptic Total) dextromethorphan-guaifenesin 10 10 ml PO Q4H PRN 01/13/21 01/13/21 Unknown Hi story mg-100 mg/5 mL oral syrup docusate sodium 100 mg capsule 100 mg PO BID 01/13/21 01/13/21 Unknown History hydrocortisone 1 % topical cream 1 appl TOPICAL QID PRN 01/13/21 01/13/21 Unkno wn History iron fum-vit C-B complex-FA 100 1 tab PO DAILY 01/13/21 01/13/21 Unknown History mg-1 mg tablet isosorbide mononitrate 60 mg 60 mg PO BEDTIME 01/13/21 01/13/21 Unknown History tablet,extended release 24 hr lactulose 10 gram/15 mL oral 30 ml PO Q OTHER DAY 01/13/21 01/13/21 Unknown History solution lamotrigine 100 mg tablet 1 tab PO DAILY 01/13/21 01/13/21 Unknown History lorazepam 0.5 mg tablet 0.5 mg PO BID 01/13/21 01/13/21 Unknown History lorazepam 0.5 mg tablet 0.5 mg PO Q6H PRN 01/13/21 01/13/21 Unknown History losartan 50 mg tablet 1 tab PO DAILY 01/13/21 01/13/21 Unknown History olanzapine 20 mg tablet 1 tab PO BEDTIME 01/13/21 01/13/21 Unknown History polyethylene glycol 1 %-polyvinyl 2 drp OPHTHALMIC (EYE) Q2H PRN 01/13/21 01/13/21 Unknown History alcohol 1 % eye drops polyethylene glycol 3350 17 gram 17 g PO DAILY PRN 01/13/21 01/13/21 Unknown History oral powder packet sennosides 8.6 mg tablet 17.2 mg PO DAILY 01/13/21 01/13/21 Unknown History sevelamer carbonate 800 mg tablet 1,600 mg PO TUTHSA 01/13/21 01/13/21 Unknown History sevelamer carbonate 800 mg tablet 1,600 mg PO USEASDIRECTD 01/13/21 01/13/21 Unknown History simethicone 60 mg tablet 120 mg PO Q6H PRN 01/13/21 01/13/21 Unknown History sodium chloride 0.65 % nasal spray 1 spray INTRANASAL Q4H PRN 01/13/21 01/13/21 Unknown History aerosol (Saline Nasal) duloxetine 60 mg capsule,delayed 60 mg PO DAILY 01/01/22 Unknown History release nifedipine 90 mg tablet,extended mg PO 01/01/22 Unknown History release cholecalciferol (vitamin D3) 1,250 1,250 mcg PO QMONTH 01/05/22 01/05/22 Unknown History mcg (50,000 unit) tablet metoprolol succinate 50 mg 1 tab PO DAILY 01/05/22 01/05/22 Unknown History tablet,extended release 24 hr olanzapine 5 mg tablet 1 tab PO DAILY 01/05/22 01/05/22 Unknown History vitamin B comp no.3-folic acid 1 1 tab PO DAILY 01/05/22 01/05/22 Unknown History mg-vit C 60 mg-biotin 300 mcg tablet (Nephro-Fannie Rx) Physical Exam Vital Signs and Narrative: Vital Signs: Last Vital Signs Temp 98 F 01/05/22 02:42 Pulse 72 01/05/22 05:42 Resp 15 01/05/22 05:42 BP 139/81 01/05/22 05:04 Pulse Ox 95 01/05/22 05:42 Oxygen Flow Rate 2 01/05/22 02:37 BMI result Body Mass Index 24.3 Const: Other: patient is sitting up in bed, dyspnic on talking, tachypneic General: cooperative and no acute distress Orientation/consciousness: patient oriented x3 Eyes: General: appearance normal, both eyes and all related structures Pupils: Equal, round and reactive pupils present Resp: Other: bilateral crackles Effort & Inspection: normal respiratory effort Cardio: Rate: regular rate Rhythm: regular rhythm GI: Palpation (GI): Soft to palpation Auscultation: normal bowel sounds Skin: General skin exam: no rashes or lesions noted Neuro: General: patient oriented x3 Cranial nerves: Yes Equal, round and reactive pupils present Cognition (Neuro): normal cognition Extrem: General: Yes normal to inspection and Yes no pedal edema Results Labs CBC and Chem 7: 01/05/22 03:03 01/05/22 03:53 Labs: Laboratory Results - last 24 hr 01/05/22 01/05/22 01/05/22 02:59 02:59 03:02 MCV MCH MCHC RDW Plt Count MPV Immature Gran % (Auto) Neut % (Auto) Lymph % (Auto) [place] % (Auto) Eos % (Auto) Baso % (Auto) Lymph # (Auto) [place] # (Auto) Eos # (Auto) Baso # (Auto) Abs Immat Gran (auto) Absolute Neuts (auto) Absolute Nucleated RBC Nucleated RBC % (auto) PT 11.6 INR 1.0 VBG pH VBG pCO2 VBG pO2 VBG HCO3 VBG O2 Saturation VBG Base Excess Anion Gap Estim Creat Clear Calc Estimated GFR Random Glucose Lactic Acid Calcium Total Bilirubin AST ALT Alkaline Phosphatase B-Natriuretic Peptide Total Protein Albumin COVID-19 (MARITZA) Negative COVID-19 Clin Com See Note Influenza Type A (SHERWIN) Negative Influenza Type B (SHERWIN) Negative Influenza A & B Note See Note 01/05/22 01/05/22 01/05/22 03:03 03:03 03:04 MCV 92.3 MCH 31.0 MCHC 33.6 RDW 16.0 Plt Count 158 L MPV 9.0 L Immature Gran % (Auto) 0.3 Neut % (Auto) 86.8 H Lymph % (Auto) 5.1 L [place] % (Auto) 4.8 Eos % (Auto) 2.3 Baso % (Auto) 0.7 Lymph # (Auto) 0.4 L [place] # (Auto) 0.4 Eos # (Auto) 0.2 Baso # (Auto) 0.1 Abs Immat Gran (auto) 0.02 Absolute Neuts (auto) 6.5 Absolute Nucleated RBC 0.000 Nucleated RBC % (auto) 0.0 PT INR VBG pH VBG pCO2 VBG pO2 VBG HCO3 VBG O2 Saturation VBG Base Excess Anion Gap Estim Creat Clear Calc Estimated GFR Random Glucose Lactic Acid 0.6 Calcium Total Bilirubin AST ALT Alkaline Phosphatase B-Natriuretic Peptide 1587 H Total Protein Albumin COVID-19 (MARITZA) COVID-19 Clin Com Influenza Type A (SHERWIN) Influenza Type B (SHERWIN) Influenza A & B Note 01/05/22 01/05/22 03:08 03:53 MCV MCH MCHC RDW Plt Count MPV Immature Gran % (Auto) Neut % (Auto) Lymph % (Auto) [place] % (Auto) Eos % (Auto) Baso % (Auto) Lymph # (Auto) [place] # (Auto) Eos # (Auto) Baso # (Auto) Abs Immat Gran (auto) Absolute Neuts (auto) Absolute Nucleated RBC Nucleated RBC % (auto) PT INR VBG pH 7.33 VBG pCO2 41 VBG pO2 97 VBG HCO3 22 VBG O2 Saturation 97.0 VBG Base Excess -3.6 Anion Gap 23 H Estim Creat Clear Calc 6.7 Estimated GFR 5 Random Glucose 124 H Lactic Acid Calcium 8.2 L Total Bilirubin 0.4 AST 16 ALT 15 Alkaline Phosphatase 75 D B-Natriuretic Peptide Total Protein 7.0 Albumin 3.8 COVID-19 (MARITZA) COVID-19 Clin Com Influenza Type A (SHERWIN) Influenza Type B (SHERWIN) Influenza A & B Note ECG Interpretation: sinus rhythm with first-degree AV block, left bundle branch block which was present on previous EKG Imaging Radiologist's Impressions: Impressions Chest X-Ray 01/05/22 03:17 IMPRESSION: Bronchial wall thickening with patchy opacities. Appearance could represent small airways process versus mild edema. Assessment and Plan (1) Acute respiratory failure with hypoxia: Status: Acute (2) CHF exacerbation: Status: Acute (3) Normocytic anemia: Status: Acute (4) Volume overload: Status: Acute Plan this is a 71-year-old female With past medical history of ESRD on dialysis presents to the hospital shortness of breath found to be hypoxic # acute hypoxic respiratory failure - likely secondary to volume overload versus CHF exacerbation - patient Ativan that she did not miss her dialysis on Tuesday - tree CHF as below with Lasix, cardiology consult, will obtain echo cardiac - monitor respiratory status # CHF exacerbation - no documented history of CHF - has elevated BNP, orthopnea, PND, dyspnea on minimal exertion, no lower extremity edema - chest x-ray showing bilateral pulmonary congestion - at this time will start patient on Lasix( reports that she still produces urine), dialysis in a.m. - cardiology consult, will obtain echocardiogram, low-sodium diet, strict I&O, and daily weight # volume overload - patient reports that she did not miss her dialysis - will consult Nephrology for dialysis in a.m. # ESRD on dialysis - received dialysis Tuesday and Tuesday - consult Nephrology # hypertension - resume home medications once medication reviewed by pharmacy # anemia - acute on chronic - patient has documented anemia but seems to have dropped from 12 to night t bharathi within 1 year - will obtain ferritin, iron levels, B12, folic acid, and occult stool - follow CBC DVT prophylaxis: Heparin subQ given patient's acute CHF exacerbation as well as acute hypoxic respiratory failure she requires a minimum 2 night admission to inpatient for close monitoring and management Quality Stroke Does the patient have a stroke diagnosis?: No VTE Prior VTE?: No VTE Risk Level:: Medical - moderate - high VTE Device Contraindication: Treatment Not Indicated VTE Drug Contraindication: N/A - Med Ordered
[2022-01-05] MEDS: Sodium Zirconium Cyclosilicate 5 GM POWD.PACK PO (06:32)
[2022-01-05] MEDS: Heparin Sodium,Porcine 5,000 UNIT/ML VIAL 5000 UNIT SUBCUT ×2 (06:38→16:41)
[2022-01-05] MEDS: Dextrose 50 % 25 GM/50 ML SYRINGE IVPUSH (06:38)
[2022-01-05] MEDS: Insulin Regular, Human 100 UNIT/ML 3 ML VIAL 7 UNIT IVPUSH (06:39)
[2022-01-05] MEDS: Calcium Gluconate/NaCl,Iso-Osm 2 GM/100 ML PLAST..BAG IV (06:41)
[2022-01-05] MEDS: Albuterol/Iprat 2.5/0.5MG 3 ML AMPUL.NEB INHALE (06:47)
--- NOTE | 2022-01-05 06:48 | PC.NURSE ---
MD aware of delay in hyperkalemia protocol r/t transfer orders not being processed. states that pt will be going to dialysis this morning and we will hold the additional lasix dose
[2022-01-05 07:06] LABS: MANUAL DIFF FLAG NO
[2022-01-05 07:08] LABS: Basophils Percent Auto 0.4 % (0-2); Eosinophils Absolute Auto 0.1 X10*3/uL (0.0-0.4); Eosinophils Percent Auto 1.7 % (0-4); Hematocrit 31.5 % (37.0-47.0); Hemoglobin 10.6 g/dl (12.0-16.0); Imm Gran Abs Auto 0.03 X10*3/uL (0.00-0.03); Imm Gran Pct Auto 0.4 % (0.0-0.4); Lymphocytes Absolute Auto 0.4 X10*3/uL (1.2-4.9); Lymphocytes Percent Auto 5.2 % (20-40); Mean Corpuscular HGB Conc 33.7 g/dl (31.0-35.0); Mean Corpuscular Hemoglobin 31.5 pg (27.0-33.0); Mean Corpuscular Volume 93.8 fL (80.0-98.0); Mean Platelet Volume 9.6 fL (9.4-12.3); Monocytes Absolute Auto 0.2 X10*3/uL (0.1-1.2); Monocytes Percent Auto 2.5 % (2-11); Neutrophils Absolute Auto 6.4 x10*3/uL (2.0-8.3); Neutrophils Percent Auto 89.8 % (45-73); Platelet Count 176 X10*3/uL (160-400); Red Blood Count 3.36 X10*6/uL (4.20-5.50); White Blood Count 7.1 X10*3/uL (4.8-10.8)
--- NOTE | 2022-01-05 07:08 | PC.NURSE ---
pt is hypertensive at 205/76, MD lamar made aware. asking if pt will be going to diaylsis soon. Dialysis contacted and is requesting the patient to come up at this time
--- NOTE | 2022-01-05 07:20 | PC.NURSE ---
Patient taken to dialysis. at 07:21. [id number]. Breakfast tray sent with patient to dialysis.
[2022-01-05 07:22] LABS: Glucose, Whole Blood 120 mg/dL (60-115)
--- NOTE | 2022-01-05 07:22 | PC.NURSE ---
patient refused F/C insertion. Pt taken to dialysis.
[2022-01-05 07:26] LABS: Troponin-I High Sensitivity 27.6 ng/L (<3.5-17.0)
[2022-01-05 07:39] LABS: Anion Gap 27 (12-20); Blood Urea Nitrogen 96 mg/dL (9-16); Calcium 8.6 mg/dL (8.4-10.2); Carbon Dioxide 16 mmol/L (22-29); Chloride 99 mmol/L (96-108); Creatinine Clr Calc Pharmacy 6.4; Estimated Glomerular Filt Rate 5; Glucose Random 193 mg/dL (60-115); Potassium 6.5 mmol/L (3.3-5.1); Sodium 135 mmol/L (135-145)
--- NOTE | 2022-01-05 08:27 | PHA.MEDREC ---
Pharmacy Consult ? Medication Reconciliation Pharmacy has completed the medication reconciliation. Pt from facility.
--- NOTE | 2022-01-05 09:10 | P.CONNP_ITS ---
History of Present Illness Reason for Consult Consult date: 01/05/22 Reason for consult: ESRD on HD, Volume Overload, Hyperkalemia Chief Complaint Chief complaint: hypoxic, hyperkalemia, volume overload History of Present Illness Narrative: 71-year-old female with past medical history of ESRD on dialysis on Tuesday and Tuesday via AVF, asthma, chronic anemia, GERD, depression, who presented to [facility] with complaints of shortness of breath.? Patient reports that she has been compliant with dialysis and has not missed any session. Last session was on Tuesday. At dialysis, they are typically able to remove 4 L UF. Her symptoms started yesterday.?Patient reports that she does produce urine but is not daily.? She is not on a water pill.? She reports no lower extremity edema.? but has orthopnea and PND.? And is short of breath on minimal exertion.? No headache or change in vision, no urinary symptoms at this time.? Arrival to the ED patient hemodynamically stable? with hypoxia on room air of 85 %, patient currently on 2 L of oxygen satting 95%.? Patient was also noted to be hypertensive. Labs are significant for WBC count of 7.5, hemoglobin of 9.2 which is lower that her? baseline of 12.9 about a year ago, a medical histories of 0.4, potassium of 6.3, creatinine of 7.54, BNP of 1587, UA pending, chest x-ray? shows bronchial wall thickening with patchy opacities, this could represent small airway process versus mild edema. She was treated for hyperkalemia with calcium gluconate, insulin and Dextrose. Patient is seen on HD this morning with low K bath. She is requiring O2 NC which is not her BL> ROS otherwise negative. Review of Systems Constitutional: Reports as per HPI and Reports no additional constitutional comp laints Cardiovascular: Reports dyspnea Respiratory: Reports dyspnea PMFSH Past Medical History Medical History Anemia Asthma DM2 (diabetes mellitus, type 2) ESRD (end stage renal disease) ESRD (end stage renal disease) on dialysis GERD without esophagitis Major depressive disorder Unspecified dementia with behavioral disturbance Family History Family History Sister Asthma Father Diabetes Son Diabetes Surgical History Surgical History Hx of section Hx of colonoscopy Hx of lumpectomy Social History Social History Household Members: Unknown / Unable to assess Unable to assess alcohol history related to: Unknown Alcohol intake: unknown Advance Directives Date on File: 01/13/21 service: No Current occupational status: retired Meds Allergies Allergy/AdvReac Type Severity Reaction Status Date / Time tuberculin,PPD,multi-puncture Allergy Unknown UNKNOWN Verified 01/01/22 13:45 [TUBERCULIN,PPD,MULTI-PUNCTURE] Active Medications: Current Medications Acetaminophen (Acetaminophen 325 Mg Tablet) 650 mg PO Q6H PRN PRN Reason: Pain, Mild (Pain Scale 1-3) Furosemide (Furosemide 40 Mg/4 Ml Vial) 40 mg IVPUSH Q12H PRAMOD; Protocol Last Admin: 01/05/22 06:51 Dose: Not Given Documented by: Heparin Sodium (Porcine) (Heparin Sodium,Porcine 5,000 Unit/Ml Vial) 5,000 unit SUBCUT Q12H [facility] Last Admin: 01/05/22 06:38 Dose: 5,000 unit Documented by: Ondansetron HCl (Ondansetron Hcl 4 Mg/2 Ml Vial) 4 mg IVPUSH Q8H PRN PRN Reason: Nausea and Vomiting Sodium Chloride (0.9 % Sodium Chloride Flush 3 Ml Syringe) 3 ml IVFLUSH QSHIFT [facility] Last Admin: 01/05/22 08:29 Dose: Not Given Documented by: Home Medications Medication Instructions Recorded Confirmed Last Taken Type acetaminophen 325 mg tablet 975 mg PO Q8H PRN 01/13/21 01/05/22 Unknown History aspirin 81 mg chewable tablet 1 tab PO DAILY 01/13/21 01/05/22 Unknown History atorvastatin 40 mg tablet 1 tab PO BEDTIME 01/13/21 01/05/22 Unknown History cholecalciferol (vitamin D3) 1,250 1,250 mcg PO QMONTH 01/13/21 01/05/22 01/11/21 History mcg (50,000 unit) capsule dextromethorphan 5 mg-benzocaine 6 1 valorie PO Q4H PRN 01/13/21 01/05/22 Unknown History mg-menthol 10 mg lozenges (Chloraseptic Total) docusate sodium 100 mg capsule 100 mg PO BID 01/13/21 01/05/22 Unknown History hydrocortisone 1 % topical cream 1 appl TOPICAL QID PRN 01/13/21 01/05/22 Unknown History lactulose 10 gram/15 mL oral 30 ml PO Q2D 01/13/21 01/05/22 Unknown History solution lamotrigine 100 mg tablet 1 tab PO DAILY 01/13/21 01/05/22 Unknown History lorazepam 0.5 mg tablet 0.5 mg PO BID 01/13/21 01/05/22 Unknown History lorazepam 0.5 mg tablet 0.5 mg PO Q6H PRN 01/13/21 01/05/22 Unknown History losartan 50 mg tablet 1 tab PO DAILY 01/13/21 01/05/22 Unknown History olanzapine 20 mg tablet 1 tab PO BEDTIME 01/13/21 01/05/22 Unknown History polyethylene glycol 3350 17 gram 17 g PO Q2D PRN 01/13/21 01/05/22 Unknown History oral powder packet sennosides 8.6 mg tablet 17.2 mg PO BEDTIME 01/13/21 01/05/22 Unknown History sevelamer carbonate 800 mg tablet 1,600 mg PO TID 01/13/21 01/05/22 Unknown History duloxetine 60 mg capsule,delayed 60 mg PO DAILY 01/01/22 01/05/22 Unknown History release nifedipine 90 mg tablet,extended 90 mg PO BID 01/01/22 01/05/22 Unknown History release bisacodyl 10 mg rectal suppository 10 mg [place] DAILY PRN 01/05/22 01/05/22 Unknown History (Dulcolax (bisacodyl)) isosorbide mononitrate 30 mg 90 mg PO DAILY 01/05/22 01/05/22 Unknown History tablet,extended release 24 hr lanolin alcohols-mineral 1 appl TOPICAL DAILY PRN 01/05/22 01/05/22 Unknown History oil-w.petrolatum-ceresin topical cream (Eucerin) lidocaine 3 % topical cream 1 appl TOPICAL BID 01/05/22 01/05/22 Unknown History lidocaine-prilocaine 2.5 %-2.5 % 1 appl TOPICAL TUTHSA@0900 01/05/22 01/05/22 Unknown History topical cream metoprolol succinate 50 mg 1 tab PO DAILY 01/05/22 01/05/22 Unknown History tablet,extended release 24 hr olanzapine 5 mg tablet 1 tab PO DAILY 01/05/22 01/05/22 Unknown History polyethylene glycol 3350 17 17 g PO DAILY PRN 01/05/22 01/05/22 Unknown History gram/dose oral powder sodium chloride 0.65 % nasal spray 1 spray INTRANASAL Q4H PRN 01/05/22 01/05/22 Unknown History aerosol (Saline Nasal) vitamin B comp no.3-folic acid 1 1 tab PO DAILY 01/05/22 01/05/22 Unknown History mg-vit C 60 mg-biotin 300 mcg tablet (Nephro-Fannie Rx) Physical Exam Vital Signs: Last Vital Signs Temp 98 F 01/05/22 02:42 Pulse 79 01/05/22 07:03 Resp 18 01/05/22 07:03 BP 205/76 H 01/05/22 07:03 Pulse Ox 99 01/05/22 07:03 Oxygen Flow Rate 2 01/05/22 02:37 BMI result Body Mass Index 24.3 Const General: cooperative and no acute distress Orientation/consciousness: oriented to person, oriented to place, oriented to time and patient oriented x3 HEENT Head: Yes normal to inspection, Yes normocephalic and Yes atraumatic Resp Auscultation: diminished lung sounds Cardio Jugular venous distension: no JVD Rate: regular rate Rhythm: regular rhythm Heart sounds: S1 normal heart sound present and S2 normal heart sound present Neuro General: oriented to person, oriented to place, oriented to time and patient oriented x3 Extrem General: Yes normal to inspection and Yes no clubbing, cyanosis or edema Results Lab Results Result Diagrams: 01/05/22 06:57 01/05/22 06:57 Lab results: Chemistry 01/05/22 01/05/22 03:53 06:57 Sodium 135 135 Potassium 6.3 H* D 6.5 H* Carbon Dioxide 20 L 16 L BUN 91 H 96 H Creatinine 7.54 H* 7.98 H* Calcium 8.2 L 8.6 Hematology 01/05/22 01/05/22 03:03 06:57 WBC 7.5 7.1 Hgb 9.2 L 10.6 L Plt Count 158 L 176 Assessment and Plan (1) Volume overload: Status: Acute (2) ESRD (end stage renal disease) on dialysis: Status: Acute Plan HD now volume optimization. Extend treatment time to 4 hours and UF as tolerated. Patient will need EDW challenged as outpatient and additional education on fluid restriction between HD sessions low potassium bath renal diet phosphate binders no need for VIJI Procedures Date of Service Date of Service: 01/05/22
--- NOTE | 2022-01-05 09:17 | PM.EVENT ---
Event Note Date of Service: 01/05/22 Event Note: I personally saw and examined this patient who was admitted just hours ago with hypertensive crisis--with fluid overload and need urgent dialysis---Fluid overload likely contributing to extremely high BP there is plan to remove 6 to 7 kilos of fuid and therefore need to be cautious about treating high BP.. Will discuss with Retail Equipment Associate
--- NOTE | 2022-01-05 09:32 | MHC.CM.PN ---
Attempted to meet with patient in regards to discharge planning. Patient is currently at a test. Spoke with patient's son/HCP, Michael via telephone at [phone]. Patient is a senior care care resident of [facility]. Copy of HCP verified to be on file. Patient received 3 Pfizer vaccines. Anticipate patient will return back to [facility] via BLS when medically stable. IMM explained and left bedside. Continue to monitor for d/c needs.
--- NOTE | 2022-01-05 09:43 | CA_ITS ---
Transthoracic Echocardiogram Patient (Last, First, Middle): Shruthi Bird, Gender: Female Date of : 1950 Age: 71 Procedure Date: 01/05/2022 Procedure Type: Transthoracic Echocardiogram Location: [facility] Height: 170.18 cm Weight: 70.31 kg BSA: 1.81 m2 Heart Rate: bpm BP: 205 / 76 mmHg Cellar Packer: VH/OT Referring MD: Zack Hatfield MD Trust Administrative Assistant: Zack Hatfield MD Symptoms: CHF Study Quality: Technically Difficult due to pt condition ECG Rhythm: Sinus with extra beats Conclusions: - 1. Technically limited study despite use of contrast agent 2. Grru-vt-cvtzfeyk LV systolic dysfunction with impaired relaxation filling pattern and suggestion of increased filling pressures 3. Limited evaluation of cardiac valves with normal cardiac valvular Doppler 4. Normal calculated right ventricular systolic pressure 5. No gross pericardial effusion Findings Procedure Information Contrast agent, definity, is being given per protocol without apparent complications. Left Ventricle The left ventricle was not well visualized. Normal left ventricular cavity size. There is normal left ventricular wall thickness. The left ventricular systolic function is mild to moderately decreased. The visually estimated ejection fraction is between 40-45%. Regional wall motion abnormalities can not be excluded due to suboptimal endocardial definition. There is paradoxical septal motion consistent with a left bundle branch block. Spectral Doppler is indicative of an impaired relaxation filling pattern. Elevated filling pressures. E/E prime ratio is >15, consistent with elevated filling pressures. Right Ventricle The right ventricle was not well visualized. Atria The left atrium is mildly dilated. Interatrial shunt cannot be excluded. The right atrium was not well visualized. Aortic Valve The aortic valve was not well visualized. There is no aortic valve stenosis. There is no aortic valve regurgitation. Mitral Valve The mitral valve was not well visualized. There is mild mitral annular calcification. There is trace mitral valve regurgitation. There is no mitral valve stenosis. Pulmonic Valve The pulmonic valve was not well visualized. Tricuspid Valve Likely normal tricuspid valve structure and function. There is mild tricuspid valve regurgitation. The right ventricular systolic pressure is normal. The right ventricular systolic pressure is 20 mmHg. Normal right atrial pressure. There is no evidence of pulmonary hypertension. Great Vessels The aorta was not well visualized. The pulmonary artery was not well visualized. Venous The inferior vena cava is normal in size and collapses greater than 50% with inspiration. Pericardium/Pleural Prominent epicardial adipose tissue noted. Prior Study Comparison No prior study available for comparison. Measurements 2D Linear Measurements IVSd: 1.21 0.6-0.9/0.6-1.0 cm LVIDd: 4.54 3.9-5.3/4.2-5.9 cm LVIDd Index: 2.51 2.4-3.2/2.2-3.1 cm/m2 LVIDs: 3.78 2.0-3.6 cm LVPWd: 1.28 0.7-1.1 cm LA Diam: 3.70 2.7-3.8/3.0-4.0 cm LAIDs Index: 2.04 1.5-2.3 cm/m2 LV Mass: 264.01 67-162/88-224 g LV Mass Index: 145.86 43-95/49-115 g/m2 LVOT Diam: 2.00 3.0+(-)1.3 cm 2D Systolic Function EF 4C: 43.80 >55% EF 2C: 36.70 >55% EF BiP: 43.50 >55% Mitral Valve MV Pk E: 0.86 MV PK A: 0.93 MV Decel Time: 112.00 E/A: 0.90 E'Lateral: 5.44 E'Medial: 5.77 E/E' Med: 14.90 E/E' Lat: 15.80 PHT: 33.00 MVA PHT: 6.67 Decel [place]: 7.69 Aortic Valve AoV Pk Nii: 1.51 AoV Mn Nii: 1.07 AoV VTI: 0.32 AoV Pk Grad: 9.00 Aov Mn Grad: 5.00 KATHYA Cont.VTI: 2.00 LVOT LVOT Pk Nii: 0.92 LVOT Mn Nii: 0.60 LVOT VTI: 0.20 LVOT Pk Grad: 3.00 LVOT Mn Grad: 2.00 LVOT Diam: 2.00 LVOT Area: 3.14 Diastolic Function MV Pk E: 0.86 MV Pk A: 0.93 E/A: 0.90 E'Medial: 5.77 E/E' Med: 14.90 E' Laterial: 5.44 E/E' Lat: 15.80 Right Ventricle TAPSE (mm): 21.00 TVS' Nii: 12.00 Tricuspid Valve TR Pk Nii: 2.09 TR Pk Grad: 17.00 RA Press: 3.00 RVSP: 20.00 Great Vessels Aorta Ao Asc: 2.90 2.1-3.4 cm Updated in Other Vendor System with Status of Final Zack Hatfield MD electronically signed on 01/05/2022 4:25:30 PM with status of Final
--- NOTE | 2022-01-05 09:46 | P.CONCA_ITS ---
History of Present Illness History of Present Illness Date of Service: 01/05/22 Requesting physician: Wade Moulton Consult reason: congestive heart failure Chief complaint: hypoxic, hyperkalemia, volume overload Narrative: I was consulted to see Shruthi in cardiology consultation today as she present with hypoxic respiratory failure and findings consistent be congestive heart failure. Patient is currently in dialysis session and is sleepy. She is a poor historian. History was obtained from the patient although she was a limited historian. History was also obtained from the chart. Patient prior history of an she renal disease on hemodialysis, Tuesdays and Saturdays. She had her last dialysis session started. [facility] She has history of hypertension. Also for more chart appears to has history of left bundle-branch block, she was not aware of it. However she denies any prior cardiac history and says she has never had congestive heart failure. She denies any history of coronary artery disease. She present to the hospital with shortness of breath. Denies any recent dietary indiscretion. Denies any chest pain although this is 3 is difficult to obtain. Patient present with pro gressive shortness of breath and orthopnea. No significant leg edema. She also noted to be hypertensive. Review of Systems Review of Systems: Yes Unobtainable due to mental status PMFSH Past Medical History Medical History Anemia Asthma DM2 (diabetes mellitus, type 2) ESRD (end stage renal disease) ESRD (end stage renal disease) on dialysis GERD without esophagitis Major depressive disorder Unspecified dementia with behavioral disturbance Family History Family History Sister Asthma Father Diabetes Son Diabetes Surgical History Surgical History Hx of section Hx of colonoscopy Hx of lumpectomy Social History Social History Household Members: Unknown / Unable to assess Unable to assess alcohol history related to: Unknown Alcohol intake: unknown Advance Directives Date on File: 01/13/21 service: No Current occupational status: retired Meds Allergies Allergy/AdvReac Type Severity Reaction Status Date / Time tuberculin,PPD,multi-puncture Allergy Unknown UNKNOWN Verified 01/01/22 13:45 [TUBERCULIN,PPD,MULTI-PUNCTURE] Active Medications: Current Medications Acetaminophen (Acetaminophen 325 Mg Tablet) 650 mg PO Q6H PRN PRN Reason: Pain, Mild (Pain Scale 1-3) Furosemide (Furosemide 40 Mg/4 Ml Vial) 40 mg IVPUSH Q12H [facility]; Protocol Last Admin: 01/05/22 06:51 Dose: Not Given Documented by: Heparin Sodium (Porcine) (Heparin Sodium,Porcine 5,000 Unit/Ml Vial) 5,000 unit SUBCUT Q12H [facility] Last Admin: 01/05/22 06:38 Dose: 5,000 unit Documented by: Ondansetron HCl (Ondansetron Hcl 4 Mg/2 Ml Vial) 4 mg IVPUSH Q8H PRN PRN Reason: Nausea and Vomiting Sodium Chloride (0.9 % Sodium Chloride Flush 3 Ml Syringe) 3 ml IVFLUSH QSHIFT [facility] Last Admin: 01/05/22 08:29 Dose: Not Given Documented by: Home Medications Medication Instructions Recorded Confirmed Last Taken Type acetaminophen 325 mg tablet 975 mg PO Q8H PRN 01/13/21 01/05/22 Unknown History aspirin 81 mg chewable tablet 1 tab PO DAILY 01/13/21 01/05/22 Unknown History atorvastatin 40 mg tablet 1 tab PO BEDTIME 01/13/21 01/05/22 Unknown History cholecalciferol (vitamin D3) 1,250 1,250 mcg PO QMONTH 01/13/21 01/05/22 01/11/21 History mcg (50,000 unit) capsule dextromethorphan 5 mg-benzocaine 6 1 valorie PO Q4H PRN 01/13/21 01/05/22 Unknown History mg-menthol 10 mg lozenges (Chloraseptic Total) docusate sodium 100 mg capsule 100 mg PO BID 01/13/21 01/05/22 Unknown History hydrocortisone 1 % topical cream 1 appl TOPICAL QID PRN 01/13/21 01/05/22 Unknown History lactulose 10 gram/15 mL oral 30 ml PO Q2D 01/13/21 01/05/22 Unknown History solution lamotrigine 100 mg tablet 1 tab PO DAILY 01/13/21 01/05/22 Unknown History lorazepam 0.5 mg tablet 0.5 mg PO BID 01/13/21 01/05/22 Unknown History lorazepam 0.5 mg tablet 0.5 mg PO Q6H PRN 01/13/21 01/05/22 Unknown History losartan 50 mg tablet 1 tab PO DAILY 01/13/21 01/05/22 Unknown History olanzapine 20 mg tablet 1 tab PO BEDTIME 01/13/21 01/05/22 Unknown History polyethylene glycol 3350 17 gram 17 g PO Q2D PRN 01/13/21 01/05/22 Unknown History oral powder packet sennosides 8.6 mg tablet 17.2 mg PO BEDTIME 01/13/21 01/05/22 Unknown History sevelamer carbonate 800 mg tablet 1,600 mg PO TID 01/13/21 01/05/22 Unknown History duloxetine 60 mg capsule,delayed 60 mg PO DAILY 01/01/22 01/05/22 Unknown Histor y release nifedipine 90 mg tablet,extended 90 mg PO BID 01/01/22 01/05/22 Unknown History release bisacodyl 10 mg rectal suppository 10 mg IA DAILY PRN 01/05/22 01/05/22 Unknown History (Dulcolax (bisacodyl)) isosorbide mononitrate 30 mg 90 mg PO DAILY 01/05/22 01/05/22 Unknown History tablet,extended release 24 hr lanolin alcohols-mineral 1 appl TOPICAL DAILY PRN 01/05/22 01/05/22 Unknown History oil-w.petrolatum-ceresin topical cream (Eucerin) lidocaine 3 % topical cream 1 appl TOPICAL BID 01/05/22 01/05/22 Unknown History lidocaine-prilocaine 2.5 %-2.5 % 1 appl TOPICAL TUTHSA@0900 01/05/22 01/05/22 Unknown History topical cream metoprolol succinate 50 mg 1 tab PO DAILY 01/05/22 01/05/22 Unknown History tablet,extended release 24 hr olanzapine 5 mg tablet 1 tab PO DAILY 01/05/22 01/05/22 Unknown History polyethylene glycol 3350 17 17 g PO DAILY PRN 01/05/22 01/05/22 Unknown History gram/dose oral powder sodium chloride 0.65 % nasal spray 1 spray INTRANASAL Q4H PRN 01/05/22 01/05/22 Unknown History aerosol (Saline Nasal) vitamin B comp no.3-folic acid 1 1 tab PO DAILY 01/05/22 01/05/22 Unknown Histor y mg-vit C 60 mg-biotin 300 mcg tablet (Nephro-Fannie Rx) Physical Exam Vital Signs: Vital Signs: Last Vital Signs Temp 98 F 01/05/22 02:42 Pulse 79 01/05/22 07:03 Resp 18 01/05/22 07:03 BP 205/76 H 01/05/22 07:03 Pulse Ox 99 01/05/22 07:03 Oxygen Flow Rate 2 01/05/22 02:37 BMI result Body Mass Index 24.3 Const: General: cooperative, comfortable, tired appearing and other (Sleepy) Nutritional Appearance: average body habitus Orientation/consciousness: patient oriented x3 HEENT: Head: Yes normocephalic and Yes atraumatic Neck: Neck: Yes trachea midline, Yes supple and Yes no JVD Resp: Effort & Inspection: normal respiratory effort Auscultation: clear to auscultation bilaterally Cardio: Jugular venous distension: no JVD Palpation: normal PMI Rate: regular rate Rhythm: regular rhythm Heart sounds: S1 normal heart sound present, S2 normal heart sound present, no click, no gallops and no murmurs GI: Auscultation: normal bowel sounds Skin: General skin exam: no rashes or lesions noted Neuro: General: patient oriented x3 and no focal motor deficits Extrem: General: Yes no clubbing, cyanosis or edema Objective Labs and Meds Result diagrams: 01/05/22 06:57 01/05/22 06:57 Lab results: Laboratory Results - last 24 hr 01/05/22 01/05/22 01/05/22 02:59 02:59 03:02 WBC RBC Hgb Hct MCV MCH MCHC RDW Plt Count MPV Immature Gran % (Auto) Neut % (Auto) Lymph % (Auto) Mclennan % (Auto) Eos % (Auto) Baso % (Auto) Lymph # (Auto) Mclennan # (Auto) Eos # (Auto) Baso # (Auto) Abs Immat Gran (auto) Absolute Neuts (auto) Absolute Nucleated RBC Nucleated RBC % (auto) PT 11.6 INR 1.0 VBG pH VBG pCO2 VBG pO2 VBG HCO3 VBG O2 Saturation VBG Base Excess Sodium Potassium Chloride Carbon Dioxide Anion Gap BUN Creatinine Estim Creat Clear Calc Estimated GFR POC Glucose Random Glucose Lactic Acid Calcium Total Bilirubin AST ALT Alkaline Phosphatase Troponin I High Sens B-Natriuretic Peptide Total Protein Albumin COVID-19 (MARITZA) Negative COVID-19 Clin Com See Note Influenza Type A (SHERWIN) Negative Influenza Type B (SHERWIN) Negative Influenza A & B Note See Note 01/05/22 01/05/22 01/05/22 03:03 03:03 03:04 WBC 7.5 RBC 2.97 L Hgb 9.2 L Hct 27.4 L MCV 92.3 MCH 31.0 MCHC 33.6 RDW 16.0 Plt Count 158 L MPV 9.0 L Immature Gran % (Auto) 0.3 Neut % (Auto) 86.8 H Lymph % (Auto) 5.1 L Mclennan % (Auto) 4.8 Eos % (Auto) 2.3 Baso % (Auto) 0.7 Lymph # (Auto) 0.4 L Mclennan # (Auto) 0.4 Eos # (Auto) 0.2 Baso # (Auto) 0.1 Abs Immat Gran (auto) 0.02 Absolute Neuts (auto) 6.5 Absolute Nucleated RBC 0.000 Nucleated RBC % (auto) 0.0 PT INR VBG pH VBG pCO2 VBG pO2 VBG HCO3 VBG O2 Saturation VBG Base Excess Sodium Potassium Chloride Carbon Dioxide Anion Gap BUN Creatinine Estim Creat Clear Calc Estimated GFR POC Glucose Random Glucose Lactic Acid 0.6 Calcium Total Bilirubin AST ALT Alkaline Phosphatase Troponin I High Sens B-Natriuretic Peptide 1587 H Total Protein Albumin COVID-19 (MARITZA) COVID-19 Clin Com Influenza Type A (SHERWIN) Influenza Type B (SHERWIN) Influenza A & B Note 01/05/22 01/05/22 01/05/22 03:08 03:53 06:57 WBC 7.1 RBC 3.36 L Hgb 10.6 L Hct 31.5 L MCV 93.8 MCH 31.5 MCHC 33.7 RDW 16.0 Plt Count 176 MPV 9.6 Immature Gran % (Auto) 0.4 Neut % (Auto) 89.8 H Lymph % (Auto) 5.2 L Mclennan % (Auto) 2.5 Eos % (Auto) 1.7 Baso % (Auto) 0.4 Lymph # (Auto) 0.4 L Mclennan # (Auto) 0.2 Eos # (Auto) 0.1 Baso # (Auto) 0.0 Abs Immat Gran (auto) 0.03 Absolute Neuts (auto) 6.4 Absolute Nucleated RBC 0.000 Nucleated RBC % (auto) 0.0 PT INR VBG pH 7.33 VBG pCO2 41 VBG pO2 97 VBG HCO3 22 VBG O2 Saturation 97.0 VBG Base Excess -3.6 Sodium 135 Potassium 6.3 H* D Chloride 98 Carbon Dioxide 20 L Anion Gap 23 H BUN 91 H Creatinine 7.54 H* Estim Creat Clear Calc 6.7 Estimated GFR 5 POC Glucose Random Glucose 124 H Lactic Acid Calcium 8.2 L Total Bilirubin 0.4 AST 16 ALT 15 Alkaline Phosphatase 75 D Troponin I High Sens B-Natriuretic Peptide Total Protein 7.0 Albumin 3.8 COVID-19 (MARITZA) COVID-19 Clin Com Influenza Type A (SHERWIN) Influenza Type B (SHERWIN) Influenza A & B Note 01/05/22 01/05/22 01/05/22 06:57 06:57 07:13 WBC RBC Hgb Hct MCV MCH MCHC RDW Plt Count MPV Immature Gran % (Auto) Neut % (Auto) Lymph % (Auto) Mclennan % (Auto) Eos % (Auto) Baso % (Auto) Lymph # (Auto) Mclennan # (Auto) Eos # (Auto) Baso # (Auto) Abs Immat Gran (auto) Absolute Neuts (auto) Absolute Nucleated RBC Nucleated RBC % (auto) PT INR VBG pH VBG pCO2 VBG pO2 VBG HCO3 VBG O2 Saturation VBG Base Excess Sodium 135 Potassium 6.5 H* Chloride 99 Carbon Dioxide 16 L Anion Gap 27 H BUN 96 H Creatinine 7.98 H* Estim Creat Clear Calc 6.4 Estimated GFR 5 POC Glucose 120 H Random Glucose 193 H Lactic Acid Calcium 8.6 Total Bilirubin AST ALT Alkaline Phosphatase Troponin I High Sens 27.6 H B-Natriuretic Peptide Total Protein Albumin COVID-19 (MARITZA) COVID-19 Clin Com Influenza Type A (SHERWIN) Influenza Type B (SHERWIN) Influenza A & B Note Imaging Radiologist's impression: Impressions Chest X-Ray 01/05/22 03:17 IMPRESSION: Bronchial wall thickening with patchy opacities. Appearance could represent small airways process versus mild edema. Assessment and Plan (1) CHF exacerbation: Status: Acute New onset heart failure remote elderly woman with prior history of when she rolled disease and left bundle-branch block and an old echocardiogram showing grade 2 diastolic dysfunction. She has no ischemic symptoms at this point time although this cannot be entirely ruled out. Cause of her heart failure is unclear at this point time. She is definitely hypertensive and could be ruled related to progressive hypertensive heart disease and diastolic dysfunction. She is currently undergoing dialysis. Continue to manage volume overload with dialysis sessions. More aggressive control of blood pressure is indicated. She requires an echocardiogram to further assess LV systolic and diastolic function. She will also require ischemic workup as an inpatient to evaluate for significant obstructive coronary artery disease for which she is at high risk. Consider amlodipine 5 mg and hydralazine 25 mg b.i.d. for blood pressure management for now. Will maximize as tolerated. Will follow with you Procedures Date of Service Date of Service: 01/05/22
[2022-01-05 12:31] LABS: Glucose, Whole Blood 90 mg/dL (60-115)
[2022-01-05] MEDS: LORazepam 0.5 MG TABLET PO ×2 (13:32→21:10)
[2022-01-05] MEDS: Isosorbide Mononitrate 30 MG TAB.ER.24H 90 MG PO (13:32)
[2022-01-05] MEDS: Docusate Sodium 100 MG CAPSULE PO ×2 (13:33→21:10)
[2022-01-05] MEDS: lamoTRIgine 100 MG TABLET PO (13:33)
[2022-01-05] MEDS: Metoprolol Succinate ER 50 MG TAB.ER.24H PO (13:33)
[2022-01-05] MEDS: DULoxetine HCl 60 MG CAPSULE.DR PO (13:33)
[2022-01-05] MEDS: Multivitamin TABLET 1 TAB PO (13:33)
[2022-01-05] MEDS: Aspirin 81 MG TAB.CHEW PO (13:33)
[2022-01-05] MEDS: OLANZapine 5 MG TABLET PO (13:33)
[2022-01-05] MEDS: Losartan Potassium 50 MG TABLET PO (13:34)
[2022-01-05] MEDS: Sevelamer Carbonate Tablet 800 MG TABLET 1600 MG PO ×2 (16:41→21:17)
[2022-01-05] MEDS: 0.9 % Sodium Chloride Flush 3 ML SYRINGE IVFLUSH (16:41)
[2022-01-05 20:52] LABS: Glucose, Whole Blood 77 mg/dL (60-115)
--- NOTE | 2022-01-05 21:07 | PC.NURSE ---
Confirmed with MD and pharmacy - ok to give 2100 dose Sevelamer. Questioned because administration comment said to give prior to dialysis. OK to give 2100 dose
[2022-01-05] MEDS: Atorvastatin Calcium 40 MG TABLET PO (21:09)
[2022-01-05] MEDS: Sennosides 8.6 MG TABLET 17.2 MG PO (21:10)
[2022-01-05] MEDS: OLANZapine 10 MG TABLET 20 MG PO (21:10)
[2022-01-05] MEDS: NIFEdipine ER 90 MG TAB.ER.24 PO (21:10)
[2022-01-05] MEDS: Furosemide 40 MG/4 ML VIAL IVPUSH (21:17)
--- NOTE | 2022-01-05 23:40 | PC.NURSE ---
Pt. lost IV access. Refusing new IV access and also refusing urinary catheter. MD Saige notified and aware.
[2022-01-05] MEDS: Lidocaine 4 % Cream KIT 1 APPL TOPICAL (23:42)
[2022-01-06 03:22] VITALS: BP 149/60; PULSE 66; RESP 18; TEMP 36.3; O2SAT 93
[2022-01-06] MEDS: Heparin Sodium,Porcine 5,000 UNIT/ML VIAL 5000 UNIT SUBCUT ×2 (06:11→17:41)
[2022-01-06 07:07] VITALS: BP 165/78; PULSE 69; RESP 16; TEMP 36.9; O2SAT 98
[2022-01-06 07:26] LABS: Glucose, Whole Blood 93 mg/dL (60-115)
[2022-01-06] MEDS: Aspirin 81 MG TAB.CHEW PO (09:29)
[2022-01-06] MEDS: lamoTRIgine 100 MG TABLET PO (09:29)
[2022-01-06] MEDS: Isosorbide Mononitrate 30 MG TAB.ER.24H 90 MG PO (09:30)
[2022-01-06] MEDS: DULoxetine HCl 60 MG CAPSULE.DR PO (09:30)
[2022-01-06] MEDS: OLANZapine 5 MG TABLET PO (09:30)
[2022-01-06] MEDS: Sevelamer Carbonate Tablet 800 MG TABLET 1600 MG PO ×2 (09:30→17:40)
[2022-01-06] MEDS: Metoprolol Succinate ER 50 MG TAB.ER.24H PO (09:31)
[2022-01-06] MEDS: NIFEdipine ER 90 MG TAB.ER.24 PO ×2 (09:31→20:10)
[2022-01-06] MEDS: Losartan Potassium 50 MG TABLET PO (09:31)
[2022-01-06] MEDS: Docusate Sodium 100 MG CAPSULE PO ×2 (09:32→20:10)
[2022-01-06] MEDS: Multivitamin TABLET 1 TAB PO (09:33)
[2022-01-06] MEDS: LORazepam 0.5 MG TABLET PO ×2 (09:33→20:11)
--- NOTE | 2022-01-06 09:33 | PM.PNNEP ---
Subjective Subjective Date of Service: 01/06/22 Principal diagnosis: Volume Overload in ESRD patient on chronic outpatient HD Physical Exam Vital Signs: Vital Signs: Last Vital Signs Temp 98.5 F 01/06/22 07:07 Pulse 69 01/06/22 07:07 Resp 16 01/06/22 07:07 BP 165/78 H 01/06/22 07:07 Pulse Ox 98 01/06/22 07:07 Oxygen Flow Rate 2 01/05/22 02:37 BMI result Body Mass Index 24.3 Const: General: cooperative, comfortable and no acute distress Orientation/consciousness: patient oriented x3 HEENT: Head: Yes normal to inspection, Yes normocephalic and Yes atraumatic Neck: Neck: Yes no JVD Resp: Effort & Inspection: normal respiratory effort Auscultation: clear to auscultation bilaterally Cardio: Jugular venous distension: no JVD Rate: regular rate Rhythm: regular rhythm Heart sounds: S1 normal heart sound present and S2 normal heart sound present GI: Auscultation: normal bowel sounds Neuro: General: patient oriented x3 Extrem: General: Yes no clubbing, cyanosis or edema Objective Data Labs CBC & Chem 7: 01/05/22 06:57 01/05/22 06:57 Labs: Laboratory Results - last 24 hr 01/05/22 01/05/22 01/06/22 12:28 20:43 07:06 POC Glucose 90 77 93 Microbiology Microbiology Results: Microbiology 01/05/22 03:02 Blood - Venous Blood Culture - Preliminary No growth after 24 hours. 01/05/22 03:05 Blood - Venous Blood Culture - Preliminary No growth after 24 hours. Procedures Date of Service Date of Service: 01/06/22 Assessment & Plan Assessment and plan (1) ESRD (end stage renal disease) on dialysis: Status: Acute Plan Seen this morning and requesting to go home. Tolerted HD yesterday with UF challenge. No longer in respiratory distress. She will require fluid restriction as outpatient and EDW challenge in outpatient setting. No urgent indication for HD today. Resume outpatient schedule. low potassium bath. Low K (renal) diet phosphate binders no need for VIJI Time Spent With Patient Time: Total time spent is greater than 50% in coordination of care (as documented) at patient's floor/unit and/or counseling patient: Progress Note: Quality Stroke Does the patient have a stroke diagnosis?: No
--- NOTE | 2022-01-06 10:03 | MHC.CLN ---
NUTRITION PATIENT WITH ESRD, ON HEMODIALYSIS. ADDED LOW PHOSPHORUS TO DIET ORDER. DIET=2 GRAM SODIUM, LOW POTASSIUM, LOW PHOSPHORUS PER DIALYSIS PARAMETERS.
[2022-01-06 10:59] VITALS: BP 155/61; PULSE 74; RESP 16; TEMP 37.2; O2SAT 97
--- NOTE | 2022-01-06 11:07 | MHC.CM.PN ---
PER MULTIDISCIPLINARY ROUNDS PT REFUSING IV FOR STRESS TEST, PT'S SON PLANS ON COMING IN TO SEE IF SHE WILL AGREE, PLAN FOR PT TO COMPLETE STRESS TEST VS RETURNING TO [facility] WITHOUT TEST BEING COMPLETED, CM WILL CONT TO FOLLOW D/C NEEDS.
[2022-01-06 11:15] LABS: Glucose, Whole Blood 163 mg/dL (60-115)
--- NOTE | 2022-01-06 11:21 | PM.PNCARD ---
Subjective Subjective Date of Service: 01/06/22 Principal diagnosis: New onset CHF Interval history: Patient developed CHF while being on dialysis outpatient. Echocardiogram shows [id number] LV systolic dysfunction which could be related to left bundle-branch block. However ischemia cannot be entirely ruled out. Patient says she feels well and wants to go home today. Review of Systems Review of Systems Yes all other systems are reviewed and are negative Physical Exam Vital Signs: Last Vital Signs Temp 98.9 F 01/06/22 10:59 Pulse 74 01/06/22 10:59 Resp 16 01/06/22 10:59 BP 155/61 H 01/06/22 10:59 Pulse Ox 97 01/06/22 10:59 Oxygen Flow Rate 2 01/05/22 02:37 BMI result Body Mass Index 24.3 Const General: cooperative, comfortable, no acute distress, alert and awake Nutritional Appearance: average body habitus Neck Neck: Yes trachea midline, Yes supple and Yes no JVD Resp Effort & Inspection: normal respiratory effort Auscultation: clear to auscultation bilaterally Cardio Jugular venous distension: no JVD Palpation: normal PMI Rate: regular rate Rhythm: regular rhythm Heart sounds: S1 normal heart sound present, S2 normal heart sound present, no click, no gallops and no murmurs Skin General skin exam: no rashes or lesions noted Neuro General: no focal motor deficits Extrem General: Yes no clubbing, cyanosis or edema Objective Labs and Meds Result diagrams: 01/05/22 06:57 01/05/22 06:57 Lab results: Laboratory Results - last 24 hr 01/05/22 01/05/22 01/06/22 12:28 20:43 07:06 POC Glucose 90 77 93 01/06/22 10:58 POC Glucose 163 H Progress Note: A&P Assessment and plan (1) CHF exacerbation: Status: Acute Assessment and Plan: New onset heart failure in elderly woman with end-stage renal disease on risk factor with known prior left bundle-branch block. LV systolic function is reduced. Myocardial ischemia needs to be ruled out. Requires inpatient myocardial perfusion imaging to further assess for the same as she is at high risk for the same. She however is adamant in wanting to go home. Discussed with hospitalist team. Patient's son is going to discuss with patient about need to stay in hospital. Continue with dialysis sessions. Blood pressure is still elevated and maximize medical therapy with addition of hydralazine 25 mg b.i.d. which was not done yesterday for afterload reduction for heart failure as well and better blood pressure control. Maximize as tolerated. Overall prognosis depends on the finding of stress testing. If patient agrees please let us know so we can schedule a stress test to cardiology department. Fall Risk Details Current Medications: Current Medications Acetaminophen (Acetaminophen 325 Mg Tablet) 650 mg PO Q6H PRN PRN Reason: Pain, Mild (Pain Scale 1-3) Acetaminophen (Acetaminophen 325 Mg Tablet) 975 mg PO Q8H PRN PRN Reason: Pain (Scale Score 1-3) Aspirin (Aspirin 81 Mg Tab.Chew) 81 mg PO DAILY [facility] Last Admin: 01/06/22 09:29 Dose: 81 mg Documented by: Atorvastatin Calcium (Atorvastatin Calcium 40 Mg Tablet) 40 mg PO BEDTIME [facility] Last Admin: 01/05/22 21:09 Dose: 40 mg Documented by: Bisacodyl (Bisacodyl 10 Mg Supp.Rect) 10 mg SC DAILY PRN PRN Reason: Constipation Dextrose (Dextrose 50 % 25 Gm/50 Ml Syringe) 25 gm IVPUSH Q15M PRN; Protocol PRN Reason: per Hypoglycemia Standing Ord. Docusate Sodium (Docusate Sodium 100 Mg Capsule) 100 mg PO BID [facility] Last Admin: 01/06/22 09:32 Dose: 100 mg Documented by: Duloxetine HCl (Duloxetine Hcl 60 Mg Capsule.Dr) 60 mg PO DAILY [facility] Last Admin: 01/06/22 09:30 Dose: 60 mg Documented by: Furosemide (Furosemide 40 Mg/4 Ml Vial) 40 mg IVPUSH Q12H PRAMOD; Protocol Last Admin: 01/06/22 10:42 Dose: Not Given Documented by: Glucose (Glucose Gel 15 Gm Gel..Gram.) 15 gm PO Q15M PRN; Protocol PRN Reason: per Hypoglycemia Standing Ord. Heparin Sodium (Porcine) (Heparin Sodium,Porcine 5,000 Unit/Ml Vial) 5,000 unit SUBCUT Q12H [facility] Last Admin: 01/06/22 06:11 Dose: 5,000 unit Documented by: Hydrocortisone (Hydrocortisone 1 % Cream 28.35 Gm Tube) 1 appl TOPICAL QID PRN; Protocol PRN Reason: Rash Isosorbide Mononitrate (Isosorbide Mononitrate 30 Mg Tab.Er.24h) 90 mg PO DAILY [facility]; Protocol Last Admin: 01/06/22 09:30 Dose: 90 mg Documented by: Lactulose (Lactulose 20 Gm/30 Ml Solution) 20 gm PO Q2D [facility] Last Admin: 01/05/22 16:50 Dose: Not Given Documented by: Lamotrigine (Lamotrigine 100 Mg Tablet) 100 mg PO DAILY [facility] Last Admin: 01/06/22 09:29 Dose: 100 mg Documented by: Lorazepam (Lorazepam 0.5 Mg Tablet) 0.5 mg PO Q6H PRN PRN Reason: Anxiety Lorazepam (Lorazepam 0.5 Mg Tablet) 0.5 mg PO BID [facility] Last Admin: 01/06/22 09:33 Dose: 0.5 mg Documented by: Losartan Potassium (Losartan Potassium 50 Mg Tablet) 50 mg PO DAILY [facility]; Protocol Last Admin: 01/06/22 09:31 Dose: 50 mg Documented by: Metoprolol Succinate (Metoprolol Succinate Er 50 Mg Tab.Er.24h) 50 mg PO DAILY [facility]; Protocol Last Admin: 01/06/22 09:31 Dose: 50 mg Documented by: Multivitamins/Vitamin C (Multivitamin Tablet) 1 tab PO DAILY [facility] Last Admin: 01/06/22 09:33 Dose: 1 tab Documented by: Nifedipine (Nifedipine Er 90 Mg Tab.Er.24) 90 mg PO BID [facility] Last Admin: 01/06/22 09:31 Dose: 90 mg Documented by: Non-Formulary Medication (Cholecalciferol (Vitamin D3)) 1,250 mcg PO Q30D [facility] Non-Formulary Medication (Lidocaine-Prilocaine) 1 appl TOPICAL TUTHSA@0900 [facility] Olanzapine (Olanzapine 5 Mg Tablet) 5 mg PO DAILY [facility] Last Admin: 01/06/22 09:30 Dose: 5 mg Documented by: Olanzapine (Olanzapine 10 Mg Tablet) 20 mg PO BEDTIME [facility] Last Admin: 01/05/22 21:10 Dose: 20 mg Documented by: Ondansetron HCl (Ondansetron Hcl 4 Mg/2 Ml Vial) 4 mg IVPUSH Q8H PRN PRN Reason: Nausea and Vomiting Polyethylene Glycol (Polyethylene Glycol 3350 17 Gm Powd.Pack) 17 gm PO DAILY PRN PRN Reason: Constipation Senna (Sennosides 8.6 Mg Tablet) 17.2 mg PO BEDTIME [facility] Last Admin: 01/05/22 21:10 Dose: 17.2 mg Documented by: Sevelamer Carbonate (Sevelamer Carbonate Tablet 800 Mg Tablet) 1,600 mg PO TID [facility] Last Admin: 01/06/22 09:30 Dose: 1,600 mg Documented by: Sodium Chloride (0.9 % Sodium Chloride Flush 3 Ml Syringe) 3 ml IVFLUSH QSHIFT [facility] Last Admin: 01/06/22 09:32 Dose: Not Given Documented by: Sodium Chloride (Sodium Chloride 0.65 % Nasal 44 Ml Sprbtl) 1 spray NOSTRIL-B Q4H PRN PRN Reason: Dry Nasal Passages Time Spent With Patient Time: Total time spent is greater than 50% in coordination of care (as documented) at patient's floor/unit and/or counseling patient: Progress Note: Quality Stroke Does the patient have a stroke diagnosis?: No Procedures Date of Service Date of Service: 01/06/22
--- NOTE | 2022-01-06 14:46 | P.PNIM_ITS ---
Subjective Subjective Date of Service: 01/06/22 Interval History: No acute issues overnight. Cardiology recommending stress test but patient adamantly refuses. Review of Systems Denies chest pain Denies shortness of breath Denies nausea vomiting diarrhea Denies fever chills Physical Exam Vital Signs: Vital Signs: Last Vital Signs Temp 98.9 F 01/06/22 10:59 Pulse 74 01/06/22 10:59 Resp 16 01/06/22 10:59 BP 155/61 H 01/06/22 10:59 Pulse Ox 97 01/06/22 10:59 Oxygen Flow Rate 2 01/05/22 02:37 BMI result Body Mass Index 24.3 Const: Other: Awake alert no acute distress Resp: Other: Clear to auscultation bilaterally no rales rhonchi or wheezes Cardio: Other: No S4; positive S1-S2; no S3 murmurs rubs or gallops GI: Other: Soft nontender nondistended with normoactive bowel sounds Extrem: Other: No edema bilaterally Objective Data Active Medications Acetaminophen (Acetaminophen 325 Mg Tablet) 650 mg PO Q6H PRN PRN Reason: Pain, Mild (Pain Scale 1-3) Acetaminophen (Acetaminophen 325 Mg Tablet) 975 mg PO Q8H PRN PRN Reason: Pain (Scale Score 1-3) Aspirin (Aspirin 81 Mg Tab.Chew) 81 mg PO DAILY [facility] Last Admin: 01/06/22 09:29 Dose: 81 mg Documented by: LUCIEN Atorvastatin Calcium (Atorvastatin Calcium 40 Mg Tablet) 40 mg PO BEDTIME [facility] Last Admin: 01/05/22 21:09 Dose: 40 mg Documented by: SONY Bisacodyl (Bisacodyl 10 Mg Supp.Rect) 10 mg MA DAILY PRN PRN Reason: Constipation Dextrose (Dextrose 50 % 25 Gm/50 Ml Syringe) 25 gm IVPUSH Q15M PRN; Protocol PRN Reason: per Hypoglycemia Standing Ord. Docusate Sodium (Docusate Sodium 100 Mg Capsule) 100 mg PO BID [facility] Last Admin: 01/06/22 09:32 Dose: 100 mg Documented by: LUCIEN Duloxetine HCl (Duloxetine Hcl 60 Mg Capsule.Dr) 60 mg PO DAILY [facility] Last Admin: 01/06/22 09:30 Dose: 60 mg Documented by: LUCIEN Furosemide (Furosemide 40 Mg/4 Ml Vial) 40 mg IVPUSH Q12H [facility]; Protocol Last Admin: 01/06/22 10:42 Dose: Not Given Documented by: LUCIEN Non-Admin Reason: No Access Glucose (Glucose Gel 15 Gm Gel..Gram.) 15 gm PO Q15M PRN; Protocol PRN Reason: per Hypoglycemia Standing Ord. Heparin Sodium (Porcine) (Heparin Sodium,Porcine 5,000 Unit/Ml Vial) 5,000 unit SUBCUT Q12H [facility] Last Admin: 01/06/22 06:11 Dose: 5,000 unit Documented by: SONY Hydralazine HCl (Hydralazine Hcl 25 Mg Tablet) 25 mg PO BID [facility]; Protocol Hydrocortisone (Hydrocortisone 1 % Cream 28.35 Gm Tube) 1 appl TOPICAL QID PRN; Protocol PRN Reason: Rash Isosorbide Mononitrate (Isosorbide Mononitrate 30 Mg Tab.Er.24h) 90 mg PO DAILY [facility]; Protocol Last Admin: 01/06/22 09:30 Dose: 90 mg Documented by: LUCIEN Lactulose (Lactulose 20 Gm/30 Ml Solution) 20 gm PO Q2D [facility] Last Admin: 01/05/22 16:50 Dose: Not Given Documented by: CRISTINA Non-Admin Reason: Patient Refused Lamotrigine (Lamotrigine 100 Mg Tablet) 100 mg PO DAILY [facility] Last Admin: 01/06/22 09:29 Dose: 100 mg Documented by: LUCIEN Lorazepam (Lorazepam 0.5 Mg Tablet) 0.5 mg PO Q6H PRN PRN Reason: Anxiety Lorazepam (Lorazepam 0.5 Mg Tablet) 0.5 mg PO BID [facility] Last Admin: 01/06/22 09:33 Dose: 0.5 mg Documented by: LUCIEN Losartan Potassium (Losartan Potassium 50 Mg Tablet) 50 mg PO DAILY [facility]; Protocol Last Admin: 01/06/22 09:31 Dose: 50 mg Documented by: LUCIEN Metoprolol Succinate (Metoprolol Succinate Er 50 Mg Tab.Er.24h) 50 mg PO DAILY [facility]; Protocol Last Admin: 01/06/22 09:31 Dose: 50 mg Documented by: LUCIEN Multivitamins/Vitamin C (Multivitamin Tablet) 1 tab PO DAILY [facility] Last Admin: 01/06/22 09:33 Dose: 1 tab Documented by: LUCIEN Nifedipine (Nifedipine Er 90 Mg Tab.Er.24) 90 mg PO BID [facility] Last Admin: 01/06/22 09:31 Dose: 90 mg Documented by: LUCIEN Olanzapine (Olanzapine 5 Mg Tablet) 5 mg PO DAILY [facility] Last Admin: 01/06/22 09:30 Dose: 5 mg Documented by: LUCIEN Olanzapine (Olanzapine 10 Mg Tablet) 20 mg PO BEDTIME [facility] Last Admin: 01/05/22 21:10 Dose: 20 mg Documented by: SONY Ondansetron HCl (Ondansetron Hcl 4 Mg/2 Ml Vial) 4 mg IVPUSH Q8H PRN PRN Reason: Nausea and Vomiting Polyethylene Glycol (Polyethylene Glycol 3350 17 Gm Powd.Pack) 17 gm PO DAILY PRN PRN Reason: Constipation Senna (Sennosides 8.6 Mg Tablet) 17.2 mg PO BEDTIME [facility] Last Admin: 01/05/22 21:10 Dose: 17.2 mg Documented by: SONY Sevelamer Carbonate (Sevelamer Carbonate Tablet 800 Mg Tablet) 1,600 mg PO TIDAC [facility] Sodium Chloride (0.9 % Sodium Chloride Flush 3 Ml Syringe) 3 ml IVFLUSH QSHIFT [facility] Last Admin: 01/06/22 09:32 Dose: Not Given Documented by: LUCIEN Non-Admin Reason: No Access Sodium Chloride (Sodium Chloride 0.65 % Nasal 44 Ml Sprbtl) 1 spray NOSTRIL-B Q4H PRN PRN Reason: Dry Nasal Passages Labs CBC & Chem 7: 01/05/22 06:57 01/05/22 06:57 Labs: Laboratory Results - last 24 hr 01/05/22 01/06/22 01/06/22 20:43 07:06 10:58 POC Glucose 77 93 163 H Microbiology Microbiology Results: Microbiology 01/05/22 03:02 Blood Culture - Preliminary Blood - Venous No growth after 24 hours. 01/05/22 03:05 Blood Culture - Preliminary Blood - Venous No growth after 24 hours. Assessment and Plan (1) CHF exacerbation: Status: Acute (2) ESRD (end stage renal disease) on dialysis: Status: Acute (3) HTN (hypertension): Status: Acute Plan 71-year-old female With past medical history of ESRD on dialysis presents to the hospital shortness of breath while receiving HD. Found to be in acute CHF 1. Acute Systolic CHF exacerbation -01/05/22 LVEF 40-45% -cardiology feels strong that there is a high possibility of underlying ischemic cardiac disease. Patient was offered stress test by Cardiology but adamantly refused stating she wanted to return home. Call placed to son Michael who is healthcare proxy; he visited his mom in the hospital but could not convince her to do the test. He is comfortable with her returning back to [facility]. A call has been placed as he needs to sign his mother out AMA 2.ESRD on [employer] -received dialysis Tuesday and Tuesday -will discuss with Renal in a.m. regarding next dialysis session 3.Hypertension -continue outpatient regimen -add hydralazine 25 mg b.i.d. and follow response -follow renals/divalents 4.Anemia - acute on chronic - stable Hgb - follow CBC DVT prophylaxis: Heparin subQ given patient's acute CHF exacerbation as well as acute hypoxic respiratory failure requires continued hospitalization Quality Stroke Does the patient have a stroke diagnosis?: No VTE Prior VTE?: No VTE Risk Level:: Medical - moderate - high VTE Device Contraindication: Treatment Not Indicated VTE Drug Contraindication: N/A - Med Ordered
[2022-01-06] MEDS: hydrALAZINE HCl 25 MG TABLET PO ×2 (15:00→20:10)
[2022-01-06 15:19] VITALS: BP 132/57; PULSE 75; RESP 16; TEMP 36.1; O2SAT 93
[2022-01-06 15:46] LABS: Glucose, Whole Blood 110 mg/dL (60-115)
[2022-01-06 19:49] VITALS: BP 155/61; PULSE 67; RESP 17; TEMP 36.7; O2SAT 95
[2022-01-06] MEDS: Sennosides 8.6 MG TABLET 17.2 MG PO (20:10)
[2022-01-06] MEDS: Atorvastatin Calcium 40 MG TABLET PO (20:10)
[2022-01-06] MEDS: OLANZapine 10 MG TABLET 20 MG PO (20:10)
[2022-01-06 20:13] LABS: Glucose, Whole Blood 106 mg/dL (60-115)
[2022-01-06 23:26] VITALS: BP 150/60; PULSE 60; RESP 16; TEMP 36; O2SAT 93
[2022-01-07 03:11] VITALS: BP 143/62; PULSE 65; RESP 16; TEMP 36.2; O2SAT 93
--- NOTE | 2022-01-07 05:51 | PC.NURSE ---
CARE ASSUMED 23:15...AWAKE..ALERT..ORIENTED X3...VAGUE AT TIMES...CONTINUES TO REFUSE IV ACCESS...REFUSED AM HEPARIN SC....RESPIRATIONS EASY ON ROOM AIR....NSR LBBB..NO ECTOPY...OOB X1 TO BR WITH STEADY GAIT...FISTULA WITH (+) BRUIT..DENIES/OFFERS NOP COMPLAINTS
[2022-01-07 07:25] LABS: Glucose, Whole Blood 122 mg/dL (60-115)
[2022-01-07 07:33] VITALS: BP 144/71; PULSE 62; RESP 20; TEMP 36.7; O2SAT 97
[2022-01-07] MEDS: Sevelamer Carbonate Tablet 800 MG TABLET 1600 MG PO ×2 (08:48→14:14)
[2022-01-07] MEDS: LORazepam 0.5 MG TABLET PO (08:50)
--- NOTE | 2022-01-07 09:33 | MHC.CM.PN ---
CM ATYTEMPTED CALL PT'S SON/HCP DODIE AT 9:33AM AT NUMBER ON FILE TO DISCUSS DCP OF SENDING PT BACK TO [facility] FOR LTC TODAY AFTER DIALYSIS, PER HOSPITALIST DODIE WAS IN AGREEMENT OF PLAN YESTERDAY, CM WILL REVISIT LATER TODAY, TRANSPORT SET UP FOR 3:30PM, SNF, NURSING AND HOSPITALIST AWARE.
--- NOTE | 2022-01-07 09:44 | PM.PNNEP ---
Subjective Subjective Date of Service: 01/07/22 Principal diagnosis: New onset CHF Interval history: No acute issues overnight. Cardiology recommending stress test but patient adamantly refuses. Physical Exam Vital Signs: Vital Signs: Last Vital Signs Temp 98.0 F 01/07/22 07:33 Pulse 62 01/07/22 07:33 Resp 20 01/07/22 07:33 BP 144/71 H 01/07/22 07:33 Pulse Ox 97 01/07/22 07:33 Oxygen Flow Rate 2 01/05/22 02:37 BMI result Body Mass Index 24.3 Const: General: cooperative, comfortable and no acute distress HEENT: Head: Yes normal to inspection, Yes normocephalic and Yes atraumatic Neck: Neck: Yes no JVD Resp: Effort & Inspection: normal respiratory effort Auscultation: clear to auscultation bilaterally Cardio: Jugular venous distension: no JVD Rate: regular rate Rhythm: regular rhythm Heart sounds: S1 normal heart sound present and S2 normal heart sound present GI: Auscultation: normal bowel sounds Neuro: General: moves all extremities and no focal motor deficits Extrem: General: Yes normal to inspection and Yes no pedal edema Objective Data Labs CBC & Chem 7: 01/05/22 06:57 01/05/22 06:57 Labs: Laboratory Results - last 24 hr 01/06/22 01/06/22 01/06/22 10:58 15:42 20:06 POC Glucose 163 H 110 106 01/07/22 07:21 POC Glucose 122 H Microbiology Microbiology Results: Microbiology 01/05/22 03:02 Blood - Venous Blood Culture - Preliminary No growth after 48 hours. 01/05/22 03:05 Blood - Venous Blood Culture - Preliminary No growth after 48 hours. Procedures Date of Service Date of Service: 01/07/22 Assessment & Plan Assessment and plan (1) ESRD (end stage renal disease) on dialysis: Status: Acute (2) HTN (hypertension): Status: Acute Plan Seen this morning and requesting to go home. Tolerated HD on Tuesday with UF challenge. No longer in respiratory distress. Unfortunately refusing stress test. Echo findings noted. She will require fluid restriction as outpatient and EDW challenge in outpatient setting. UF as tolerated today during HD. BP better controlled. Changes per cardiology noted. low potassium bath. Low K (renal) diet phosphate binders no need for VIJI Time Spent With Patient Time: Total time spent is greater than 50% in coordination of care (as documented) at patient's floor/unit and/or counseling patient: Progress Note: Quality Stroke Does the patient have a stroke diagnosis?: No
--- NOTE | 2022-01-07 10:46 | MHC.INPTTRAN ---
recieved dialysis today and [facility]. Denies pain. Ambulating with supervision. Cornell diet. No acute distress.
[2022-01-07 11:57] LABS: COVID-19 Test Negative (Negative); IDNOW Serial# 16C4AD1C
--- NOTE | 2022-01-07 13:33 | PM.DS ---
DS: Providers Provider Date of Service: 01/07/22 Date of admission: 01/05/22 05:04 Date of discharge: 01/07/22 Primary care physician: Damien Read MD Consults: 01/05/22 05:07 Consult to Nephrology Routine Consulting Provider[facility] Reason for consultation: dialysis Has provider been notified: No 01/05/22 05:59 Consult to Cardiology Routine Consulting Provider: Zack Hatfield Reason for consultation: chf? Has provider been notified: No DS: Diagnosis Discharge Diagnosis (1) ESRD (end stage renal disease) on dialysis: Status: Acute (2) HTN (hypertension): Status: Acute DS: Summary Hospital Course Hospital Course: 71-year-old female with past medical history of anemia, asthma, diabetes, ESRD on dialysis on Tuesday and Tuesday, GERD, depression, who presents to the hospital with complaints of shortness of breath.? Patient reports that her symptoms started yesterday.? Patient reports compliance with dialysis her last session was on Tuesday, patient reports minimal cough that is nonproductive, no chest pain, no abdominal pain nausea or vomiting, no diarrhea constipation, no urinary symptoms.? Patient reports that she does produce urine but is not daily.? She is not on a water pill.? She reports no lower extremity edema.? but has orthopnea and PND.? And is short of breath on minimal exertion.? No headache or change in vision, no urinary symptoms at this time.? Arrival to the ED patient hemodynamically stable? with hypoxia on room air of 85%, patient currently on 2 L of oxygen satting 95%.? Patient was also noted to be hypertensive. Labs are significant for WBC count of 7.5, hemoglobin of 9.2 which is lower that her? baseline of 12.9 about a year ago, a medical histories of 0.4, potassium of 6.3, creatinine of 7.54, BNP of 1587, UA pending, chest x-ray? shows bronchial wall thickening with patchy opacities, this could represent small airway process versus mild edema She was treated for hyperkalemia with calcium gluconate, insulin and Dextrose. Patient is seen on HD this morning with low K bath. She is requiring O2 NC which is not her BL> Hospital course Patient was admitted to the telemetry and Cardiology consult was placed. It was felt by Cardiology that given the fact that she had chest pain on dialysis that she likely had some degree of ischemic cardiac disease; subsequent echocardiogram done on 01/05 demonstrated [id number] LV systolic dysfunction with impaired relaxation the; estimated LVEF 40-45%. Given these findings and clinical presentation cardiology felt strongly the patient needed a stress test. When approached for these testings patient was agitated and adamantly refuse stress test. She continued to refuse and a call was placed to her son Michael. Michael came to the hospital and attempted to talk to his mother however she still continued to refuse. At this point in time she will be discharged against medical advice; this was discussed at length with her son Michael who is in agreement and is willing to accept AMA status. This was verified by Dr. Dumont. At this point in time she will be discharged back to long-term care facility to resume previous course ; Time Spent with Patient Time attestation: Total time spent providing and/or coordinating discharge services: Discharge coordination time: Greater than 30 minutes Quality: Safe Use of Opioids Does Pt have an Active Cancer Diagnosis on the Problem List?: No Quality: Stroke Does the patient have a stroke diagnosis?: No Physical Exam Vital Signs: Vital Signs: Last Vital Signs Temp 98.0 F 01/07/22 07:33 Pulse 62 01/07/22 07:33 Resp 20 01/07/22 07:33 BP 144/71 H 01/07/22 07:33 Pulse Ox 97 01/07/22 07:33 Oxygen Flow Rate 2 01/05/22 02:37 BMI result Body Mass Index 24.3 Const: Other: Awake alert no acute distress Resp: Other: Clear to auscultation bilaterally no rales rhonchi or wheezes Cardio: Other: No S4; positive S1-S2; no S3 murmurs rubs or gallops GI: Other: Soft nontender nondistended with normoactive bowel sounds Extrem: Other: No edema bilaterally DS: Data Data Completed and Pending Completed studies during hospitalization [Text1]: Procedures Assistance with Respiratory Ventilation, Less than 24 Consecutive Hours, Continuous Positive Airway Pressure (01/13/21) Performance of Urinary Filtration, Intermittent, Less than 6 Hours Per Day (01/13/21) Labs on day of discharge: Laboratory Results - last 24 hr 01/06/22 01/06/22 01/07/22 15:42 20:06 07:21 POC Glucose 110 106 122 H COVID-19 ([facility]) COVID-19 Clin Com 01/07/22 11:30 POC Glucose COVID-19 ([facility]) Negative COVID-19 Clin Com See Note Preliminary micro results at discharge 01/05/22 03:02 Blood Culture - Preliminary Blood - Venous No growth after 48 hours. 01/05/22 03:05 Blood Culture - Preliminary Blood - Venous No growth after 48 hours. Discharge Plan Discharge Patient Disposition: er [facility] Discharge Diagnosis: Acute systolic CHF exacerbation Referrals: [facility] [Outside] - 1 Day ([facility] Damien Read MD [Primary Care Provider] - 1 Week Discharge Medications: Continued losartan 50 mg tablet 1 tab PO DAILY 0RF atorvastatin 40 mg tablet 1 tab PO BEDTIME 0RF lorazepam 0.5 mg tablet 0.5 mg PO BID 0RF olanzapine 20 mg tablet 1 tab PO BEDTIME 0RF lamotrigine 100 mg tablet 1 tab PO DAILY 0RF sevelamer carbonate 800 mg tablet 1,600 mg PO TID 0RF Rx Instructions: PRIOR TO DIALYSIS sennosides 8.6 mg Tablet 17.2 mg PO BEDTIME 0RF acetaminophen 325 mg Tablet 975 mg PO Q8H PRN (Reason: Pain (Scale Score 1-3)) 0RF polyethylene glycol 3350 17 gram Powder In Packet 17 g PO Q2D PRN (Reason: Constipation) 0RF lorazepam 0.5 mg Tablet 0.5 mg PO Q6H PRN (Reason: Anxiety) 0RF Rx Instructions: Do not give within 1 hours of scheduled dose hydrocortisone 1 % Cream 1 appl TOPICAL QID PRN (Reason: Rash) 0RF Rx Instructions: APPLY TO HANDS AND FOREARMS FOR ECZEMA/PSORIAS docusate sodium 100 mg Capsule 100 mg PO BID 0RF aspirin 81 mg Tablet,Chewable 1 tab PO DAILY 0RF lactulose 10 gram/15 mL Solution 30 ml PO Q2D 0RF cholecalciferol (vitamin D3) 1,250 mcg (50,000 unit) Capsule 1,250 mcg PO QMONTH 0RF Rx Instructions: TAKE ON THE OF EACH MONTH Chloraseptic Total 5-6-10 mg Lozenge 1 valorie PO Q4H PRN (Reason: Sore Throat) 0RF metoprolol succinate 50 mg tablet extended release 24 hr 1 tab PO DAILY 0RF olanzapine 5 mg tablet 1 tab PO DAILY 0RF Nephro-Fannie Rx 1-60-300 mg-mg-mcg Tablet 1 tab PO DAILY 0RF isosorbide mononitrate 30 mg Tablet Extended Release 24 Hr 90 mg PO DAILY 0RF lidocaine-prilocaine 2.5-2.5 % Cream 1 appl topical TUTHSA@0900 0RF Rx Instructions: APPLY TO AV FISTULA INSERTION SITE FOR DIALYSIS bisacodyl [Dulcolax (bisacodyl)] 10 mg Suppository 10 mg OK DAILY PRN (Reason: Constipation) 0RF polyethylene glycol 3350 17 gram/dose Powder 17 g PO DAILY PRN (Reason: Constipation) 0RF Saline Nasal 0.65 % Aerosol,[place] 1 spray INTRANASAL Q4H PRN (Reason: Dry Nasal Passages) 0RF Eucerin Cream 1 appl TOPICAL DAILY PRN (Reason: Dry Skin) 0RF Rx Instructions: APPLY TO HANDS/FOREARM lidocaine 3 % Cream 1 appl TOPICAL BID 0RF Rx Instructions: APPLY TO BOTH LOWER EXTREMITIES duloxetine 60 mg capsule,delayed release(DR/EC) 60 mg PO DAILY 0RF nifedipine 90 mg tablet extended release 90 mg PO BID 0RF Discharge Orders: Discharge Order (Routine); Ordered 01/07/22 Ordered By: Jose Martin Barnes Diet: advance to usual diet Activity on Discharge: As tolerated Stand Alone Forms: Patient Portal Discharge page Care Plan Goals: Continue plan of care as previously implemented Health Concerns: Continue with dialysis as ordered Plan of Treatment: Maintain highest level of function Assessment: See discharge summary
[2022-01-07 13:42] LABS: Glucose, Whole Blood 81 mg/dL (60-115)
[2022-01-07 14:00] VITALS: BP 195/73; PULSE 70; RESP 20; TEMP 36.2; O2SAT 98
[2022-01-07] MEDS: hydrALAZINE HCl 25 MG TABLET PO (14:14)
[2022-01-07] MEDS: OLANZapine 5 MG TABLET PO (14:15)
[2022-01-07] MEDS: DULoxetine HCl 60 MG CAPSULE.DR PO (14:15)
[2022-01-07] MEDS: Metoprolol Succinate ER 50 MG TAB.ER.24H PO (14:16)
[2022-01-07] MEDS: Multivitamin TABLET 1 TAB PO (14:16)
[2022-01-07] MEDS: Losartan Potassium 50 MG TABLET PO (14:16)
[2022-01-07] MEDS: Docusate Sodium 100 MG CAPSULE PO (14:16)
[2022-01-07] MEDS: lamoTRIgine 100 MG TABLET PO (14:16)
[2022-01-07] MEDS: Aspirin 81 MG TAB.CHEW PO (14:16)
[2022-01-07] MEDS: NIFEdipine ER 90 MG TAB.ER.24 PO (14:16)
[2022-01-07] MEDS: Isosorbide Mononitrate 30 MG TAB.ER.24H 90 MG PO (14:19)
[2022-01-07 14:27] LABS: Influenza A PCR NEGATIVE (Negative); Influenza B PCR NEGATIVE (Negative); Resp Syncy Virus RNA Qual PCR NEGATIVE (Negative); SARS COV2 PCR INHOUSE NEGATIVE (Negative)
[2022-01-07 15:15] VITALS: BP 172/67; PULSE 70; RESP 20; TEMP 36.1; O2SAT 99
== END 2022-01-07 15:38 | DRG 291 ==
LOC: HO.ED 05:51 → HO.EDOVER 05:56 → HO.IMC 12:28
PROVIDERS: Internal Medicine; Admitting Provider Internal Medicine; Emergency Provider Student in an Organized Health Care Education/Training Program; PCP Internal Medicine; Visit Provider Hospitalist
DX: I13.2 Hypertensive heart and chronic kidney disease with heart failure and with stage 5 chronic kidney disease, or end stage renal disease (principal); J96.01 Acute respiratory failure with hypoxia; N18.6 End stage renal disease; I50.21 Acute systolic (congestive) heart failure; I16.9 Hypertensive crisis, unspecified; E87.5 Hyperkalemia; I44.7 Left bundle-branch block, unspecified; D63.1 Anemia in chronic kidney disease; Z20.822 Contact with and (suspected) exposure to COVID-19; Z99.2 Dependence on renal dialysis; Z79.82 Long term (current) use of aspirin; Z79.899 Other long term (current) drug therapy
CPT/HCPCS: 0241U; 36415; 71045; 80048; 80053; 82803; 82947; 83605; 83880; 84484; 85025; 85610; 87040; 87502; 87635; 90999; 93005; 93306; 94640; 96374; 99285; C1758; J0610; J1940; Q9957